=== PATIENT | male | born 1980 | race Caucasian/White ===

== ENCOUNTER → 2020-05-01 13:13 | Outpatient (CLI) | payer OTHER, SELFPAY ==
[2018-12-17 08:04] VITALS: BMI 36.2
--- NOTE | 2020-05-01 13:33 | RAD_ITS ---
STUDY: X-RAY - ABDOMEN/PELVIS REASON FOR EXAM: Male, 39 years old. 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 COMPARISON: None. FINDINGS: Normal visualized lung bases. There is an unremarkable bowel gas pattern. There is no demonstrated free abdominal air. The visualized liver, spleen and kidneys are grossly normal in size and morphology. Normal soft tissue structures. There are degenerative changes of the lumbosacral junction. RAD/Abdomen Single View IMPRESSION: There is no evidence of ileus or obstruction. There are degenerative changes of the lumbosacral junction. Electronically Signed: Jet Menon MD at 23:57 EDT , Service support ,
[2020-05-01 15:17] LABS: Absolute Lymphocyte Count 2.07 X10^3/uL (0.83-4.51); Absolute Neutrophil Count 4.6 X10^3/uL (2.0-7.7); Basophil# 0.03 X10^3/uL; Basophil% 0.4 % (0-1); Eosinophils% 1.3 % (0-5); Hematocrit 46.4 % (40-54); Hemoglobin 15.2 g/dL (13.0-16.5); Lymphocyte # 2.07 X10^3/ul (4.0); Lymphocyte % 26.5 % (19-41); Mean Corp Hgb Conc 32.8 g/dL (32-36); Mean Corpuscular Hgb 30.3 pg (27.0-32.0); Mean Corpuscular Volume 92.4 fL (80-94); Mean Platelet Vol. 10.5 fl (6.2-12.0); Monocyte# 0.96 X10^3/uL; Monocyte% 12.3 % (0-10); NRBC Flagged by Analyzer 0 % (0-5); Neutrophil # 4.63 X10^3/uL (2.7-7.7); Neutrophil % 59.1 % (47-70); Platelet Count 246 K/mm3 (150-450); RBC Distribution Width CV 12.9 % (11.6-14.6); RBC Distribution Width SD 43.5 fl (35.1-43.9); Red Blood Count 5.02 M/mm3 (4.6-6.2); White Blood Count 7.8 K/mm3 (4.4-11.0)
[2020-05-01 15:36] LABS: ALB/GLOB Ratio 1.1 RATIO (0.9-2.4); AST(SGOT) 18 U/L (15-37); Alanine Aminotransfer ALT/SGPT 28 U/L (16-61); Alkaline Phosphatase 68 U/L (45-117); Anion Gap 4 (5-15); BUN 14 mg/dL (7-18); BUN/Creat Ratio 12.5 RATIO (10-20); Calcium,Total 8.9 mg/dL (8.5-10.1); Chloride 105 mmol/L (98-107); Creatinine, Serum 1.12 mg/dL (0.70-1.30); EST Glomerular Filtration Rate 78 mL/min (>60); Est Glom Filt Rate - Afr Amer 94 mL/min (>60); Globulin 3.7 g/dL (2.2-4.2); Glucose 84 mg/dL (74-106); Potassium 4.1 mmol/L (3.5-5.1); Protein, Total 7.7 g/dL (6.4-8.2); Sodium Level 137 mmol/L (136-145)
== END ==
PROVIDERS: PCP Family Medicine; Visit Provider Family Medicine
DX: R10.12 Left upper quadrant pain (principal)
CPT/HCPCS: 36415; 74018; 80053; 85025

== ENCOUNTER → 2020-07-18 17:42 | Outpatient (CLI) | payer OTHER, SELFPAY ==
[2018-12-17 08:04] VITALS: BMI 36.2
== END ==
PROVIDERS: PCP Family Medicine; Referring Provider Family Medicine; Visit Provider Family Medicine
DX: Z11.59 Encounter for screening for other viral diseases (principal)
CPT/HCPCS: 87635; C9803; U0003

== ENCOUNTER 2021-11-05 14:34 | Outpatient (CLI) | payer OTHER, SELFPAY ==
--- NOTE | 2021-11-05 14:40 | RAD_ITS ---
STUDY: X-RAY - ABDOMEN/PELVIS REASON FOR EXAM: Male, 41 years old. HEMATURIA/BACK PAIN TECHNIQUE: Single AP view of the abdomen / pelvis. COMPARISON: None. FINDINGS: Normal visualized lung bases. There is a moderate amount of colonic fecal material. The visualized liver, spleen and kidneys are grossly normal in size and morphology. Normal soft tissue structures. Normal visualized osseous structures. RAD/Abdomen Single View IMPRESSION: Moderate amount of material is seen in the colon. Electronically Signed: Shade Machado MD at 14:55 EST , Service support ,
== END 2021-11-05 23:59 | disposition short-term general hospital (02) ==
PROVIDERS: PCP Family Medicine; Referring Provider Family Medicine; Visit Provider Family Medicine
DX: R31.29 Other microscopic hematuria (principal); M54.9 Dorsalgia, unspecified
CPT/HCPCS: 74018

== ENCOUNTER → 2023-12-05 | Outpatient (CLI) | payer OTHER, SELFPAY | END | disposition home or self-care (01) | LOC: BFHLAB 15:49 | PROVIDERS: PCP Family Medicine; Visit Provider Family Medicine | DX: Z00.00 Encounter for general adult medical examination without abnormal findings (principal) ==

== ENCOUNTER → 2023-12-08 | Outpatient (CLI) | payer OTHER, SELFPAY ==
[2023-12-08 10:32] LABS: Absolute Lymphocyte Count 1.42 X10^3/uL (0.83-4.51); Absolute Neutrophil Count 2.9 X10^3/uL (2.0-7.7); Basophil# 0.03 X10^3/uL; Basophil% 0.6 % (0-1); Eosinophil# 0.09 X10^3/uL; Eosinophils% 1.8 % (0-5); Hematocrit 44.2 % (40-54); Hemoglobin 14.5 g/dL (13.0-16.5); Lymphocyte # 1.42 X10^3/ul (0.83-4.51); Lymphocyte % 28.5 % (19-41); Mean Corp Hgb Conc 32.8 g/dL (32-36); Mean Corpuscular Volume 91.3 fL (80-94); Mean Platelet Vol. 10.2 fl (6.2-12.0); Monocyte# 0.56 X10^3/uL; Monocyte% 11.2 % (0-10); NRBC Flagged by Analyzer 0 % (0-5); Neutrophil # 2.88 X10^3/uL (2.7-7.7); Neutrophil % 57.7 % (47-70); Platelet Count 201 K/mm3 (150-450); RBC Distribution Width CV 12.4 % (11.6-14.6); RBC Distribution Width SD 41.1 fl (35.1-43.9); Red Blood Count 4.84 M/mm3 (4.6-6.2)
[2023-12-08 11:16] LABS: ALB/GLOB Ratio 1.1 RATIO (0.9-2.4); AST(SGOT) 16 U/L (15-37); Alanine Aminotransfer ALT/SGPT 24 U/L (16-61); Albumin, Serum 3.6 g/dL (3.2-5.0); Alkaline Phosphatase 51 U/L (45-117); Anion Gap 4 (5-15); BUN 11 mg/dL (7-18); Calcium,Total 8.8 mg/dL (8.5-10.1); Chloride 110 mmol/L (98-107); Cholesterol 168 mg/dL (200); EST Glomerular Filtration Rate 87 mL/min (>60); Est Glom Filt Rate - Afr Amer 105 mL/min (>60); Globulin 3.3 g/dL (2.2-4.2); Glucose 111 mg/dL (74-106); High Density Lipoprotein 51 mg/dL; Potassium 4.3 mmol/L (3.5-5.1); Protein, Total 6.9 g/dL (6.4-8.2); Sodium Level 140 mmol/L (136-145); Triglycerides 68 mg/dL; Very Low Density Lipoprotein 14 mg/dL (5-40)
[2023-12-08 11:37] LABS: Hemoglobin A1c 5.8 % (3.8-5.6)
== END | disposition home or self-care (01) ==
PROVIDERS: PCP Family Medicine; Referring Provider Family Medicine; Visit Provider Family Medicine
DX: Z00.00 Encounter for general adult medical examination without abnormal findings (principal)
CPT/HCPCS: 36415; 80053; 80061; 83036; 85025

== ENCOUNTER → 2025-02-24 | Outpatient (CLI) | payer OTHER, SELFPAY ==
[2025-02-24 17:48] LABS: Absolute Lymphocyte Count 2.27 X10^3/uL (0.83-4.51); Absolute Neutrophil Count 3.8 X10^3/uL (2.0-7.7); Basophil# 0.03 X10^3/uL; Basophil% 0.4 % (0-1); Eosinophil# 0.12 X10^3/uL; Eosinophils% 1.7 % (0-5); Hematocrit 42.3 % (40-54); Hemoglobin 13.9 g/dL (13.0-16.5); Lymphocyte # 2.27 X10^3/ul (0.83-4.51); Lymphocyte % 32.2 % (19-41); Mean Corp Hgb Conc 32.9 g/dL (32-36); Mean Corpuscular Hgb 29.7 pg (27.0-32.0); Mean Corpuscular Volume 90.4 fL (80-94); Mean Platelet Vol. 10.6 fl (6.2-12.0); Monocyte# 0.78 X10^3/uL; NRBC Flagged by Analyzer 0 % (0-5); Neutrophil # 3.84 X10^3/uL (2.7-7.7); Neutrophil % 54.4 % (47-70); Platelet Count 223 K/mm3 (150-450); RBC Distribution Width CV 12.6 % (11.6-14.6); Red Blood Count 4.68 M/mm3 (4.6-6.2); White Blood Count 7.1 K/mm3 (4.4-11.0)
[2025-02-24 18:01] LABS: Hemoglobin A1c 5.8 % (<=5.6)
[2025-02-24 18:03] LABS: ALB/GLOB Ratio 1.5 RATIO (0.9-2.4); AST(SGOT) 17 U/L (<=37); Alanine Aminotransfer ALT/SGPT 15 U/L (<=46); Albumin, Serum 4.2 g/dL (3.5-5.0); Alkaline Phosphatase 60 U/L (40-129); Anion Gap 9 (5-15); BUN 15 mg/dL (4-19); BUN/Creat Ratio 14.8 RATIO (10-20); Calcium,Total 9.2 mg/dL (7.6-11.0); Carbon Dioxide 25.4 mmol/L (21.0-32.0); Chloride 104 mmol/L (98-108); Cholesterol 180 mg/dL (<=200); Creatinine, Serum 0.98 mg/dL (0.70-1.20); EST Glomerular Filtration Rate 98 (>60); Globulin 2.8 g/dL (2.2-4.2); Glucose 93 mg/dL (70-99); High Density Lipoprotein 49 mg/dL; Low Density Lipoprotein Calc. 110 mg/dL; Potassium 4.5 mmol/L (3.3-5.1); Sodium Level 139 mmol/L (133-145); Total Bilirubin 0.29 mg/dL (0.00-1.30); Triglycerides 102 mg/dL; Very Low Density Lipoprotein 20 mg/dL (5-40); cholesterol:hdl ratio screen 3.65
== END | disposition home or self-care (01) ==
LOC: MTLAB 16:22
PROVIDERS: PCP Family Medicine; Referring Provider Family Medicine; Visit Provider Family Medicine
DX: Z00.00 Encounter for general adult medical examination without abnormal findings (principal); R53.83 Other fatigue; R73.01 Impaired fasting glucose
CPT/HCPCS: 36415; 80053; 80061; 83036; 84402; 84403; 85025

== ENCOUNTER → 2025-03-11 | Outpatient (CLI) | payer OTHER, SELFPAY ==
[2025-03-13 08:08] LABS: PROLACTIN 8.3 ng/mL (3.9-22.7); Transferrin 267 mg/dL (177-329)
== END | disposition home or self-care (01) ==
PROVIDERS: PCP Family Medicine; Referring Provider Family Medicine; Visit Provider Family Medicine
DX: E29.1 Testicular hypofunction (principal)
CPT/HCPCS: 36415; 84146; 84403; 84443; 84466

== ENCOUNTER 2025-05-11 23:45 | Observation (INO) | payer OTHER, SELFPAY ==
[2025-05-11 23:46] VITALS: BP 125/91; PULSE 90; RESP 18; TEMP 36.9; O2SAT 98; BMI 37.8
[2025-05-12] VITALS (9 sets, daily range): BP systolic 117–133; BP diastolic 69–83; PULSE 67–93; RESP 16–18; TEMP 36.4–37; O2SAT 94–98; BMI 38.0
--- NOTE | 2025-05-12 00:05 | EKG12_ITS ---
Test Reason : BACK Blood Pressure : */* mmHG Vent. Rate : 85 BPM Atrial Rate : 85 BPM P-R Int : 158 ms QRS Dur : 88 ms QT Int : 358 ms P-R-T Axes : 40 64 20 degrees QTcB Int : 426 ms Normal sinus rhythm Normal ECG Confirmed by MELISSA RAY, ANGELIKA ([id number]), website/blog editor ENA UMANZOR ([id number]) on 05/13/2025 1:17:50 PM Referred By: THOMAS Confirmed By: ANGELIKA TORRES MD
--- OUTSIDE RECORDS SUMMARY | 2025-05-12 00:11 | XMS RPT_ITS | CCD ---
Author Organization [facility] Care Team Providers Care Telephone Plant Power Operator Name Role Phone Dr. Kike Desir DO Primary Care Provider Dr. Kike Desir DO Attending Provider Dr. Kike Desir DO Referring Provider Kike Desir Primary Care Unavailable Kike Desir Referring Unavailable Kike Desir Attending Unavailable Kike Desir Referring Unavailable Kike Desir Attending Unavailable Kike Desir Primary Care Unavailable Medications Current Medications Medication Drug Class(es) Dates Sig (Normalized) Sig (Original) lisinopril 20 mg oral tablet (4 sources) Angiotensin Converting Enzyme Inhibitor Start: 12-17-2018 take 1 tablet by mouth once daily Lisinopril 20 mg tablet Active 20 mg PO DAILY December 17, 2018 1:00am Problems Problem Classification Problem Date Documented Da te Episodic/Chronic Other and unspecified benign neoplasm (4 sources) Lipoma (clinical); Translations: [Benign lipomatous neoplasm, unspecified] 12-17-2018 Episodic Other endocrine disorders (1 source) Testicular hypofunction; 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, [address] Transferrinon 03-13-2025 Transferrin [Mass/Vol] 267 mg/dL Normal 177-329 [facility] Comment on above: Result Comment: Perf ormed at: CB - [facility] [address] [id number] Amphibious Operations Officer: Tee Rodriguez PhD, Phone: [phone] Performed By: #### L 3100.5400, L3400.3800, L501.9520, L509.3001 #### [facility] [address] [place], [place], [id number] L509.3001on 03-11-2025 Testosterone [Mass/Vol] 165.00 ng/dL Low 300-890 [facility] Comment on above: Performed By: #### L 3100.5400, L3400.3800, L501.9520, L509.3001 #### [facility] [address] [place], [address] Laboratory - Chemistry and C hemistry - challengeOrdered By: Kike Desir on 03-11-2025 Testosterone [Mass/Vol] 165.00 ng/dL Low 300-890 [facility] Serum or plasma prolactin me asurement (mass/volume)Ordered By: Kike Desir on 03-11-2025 Prolactin [Mass/Vol] 8.3 ng/mL 3.9-22.7 [facility] TSH DL <= 0.005 mIU/L QnOrde red By: Kike Desir on 03-11-2025 TSH Qn 1.210 uIU/mL 0.300-4.200 [facility] Testosterone, Total / Freeon 03-11-2025 TESTOSTER,FREE 7.18 ng/dL Normal 5.00-21.00 [facility] Comment on above: Order Comment: N UNK Performed By: #### L 500.4100, L500.4050, L100.0100, L3100.5310, L501.9985 #### [facility] [address] [place], [address] TESTOSTER,TOTAL 204 ng/dL Low 264-916 [facility] Comment on above: Order Comment: N UNK Result Comment: Adul t male reference interval is based on a population of healthy nonobese males (BMI <30) between 19 and 39 years old. bud Brody.al. JCEM 2017,102;9395-4832. PMID: [id number]. Performed By: #### L 500.4100, L500.4050, L100.0100, L3100.5310, L501.9985 #### [facility] [address] [place], [place], [id number] TESTOSTERONE,%F 3.52 Normal 1.50-4.20 [facility] Comment on above: Order Comment: N UNK Result Comment: Perf ormed at: [facility] [address] [place], [place] [id number] Amphibious Operations Officer: Tee Rodriguez PhD, Phone: [phone] Performed at: [facility] [address] [id number] Amphibious Operations Officer: Jaime Moise MD, Phone: [phone] Performed By: #### L 500.4100, L500.4050, L100.0100, L3100.5310, L501.9985 #### [facility] [address] [place], [place], [address] Thyroid Stim Hormone (TSH)on 03-11-2025 TSH 1.210 uIU/mL Normal 0.300-4.200 [facility] Comment on above: Performed By: #### L 3100.5400, L3400.3800, L501.9520, L509.3001 #### [facility] [address] [place], [address] TransferrinOrdered By: Kike Desir on 03-11-2025 Transferrin [Mass/Vol] 267 mg/dL 177-329 [facility] Comment on above: Performed at: [facility] [place], [place] [id number] Director: Tee Rodriguez PhD, Phone: [phone] Absolute lymphocyte countOrd ered By: Kike Desir on 02-24-2025 Lymphocytes Auto (Unsp spec) [#/Vol] 2.27 10*3/uL 0.83-4.51 [facility] Absolute neutrophil countOrd ered By: Kike Desir on 02-24-2025 Neutrophils (Bld) [#/Vol] 3.8 10*3/uL 2.0-7.7 [facility] Anion gap in Serum or Plasma Ordered By: Kike Desir on 02-24-2025 Anion gap [Moles/Vol] 9 mmol/L 5- [facility] Automated lymphocyte count a s percentage of total leukocytesOrdered By: Kike Desir on 02-24-2025 Lymphocytes/100 WBC Auto (Unsp spec) 32.2 % - [facility] BUN/creatinine ratioOrdered By: Kike Desir on 02-24-2025 Urea nitrogen/Creatinine [Mass ratio] 14.8 mg/mg 10- [facility] Basophil percentageOrdered B y: Kike Desir on 02-24-2025 Basophils/100 WBC (Bld) 0.4 % 0-1 [facility] Bilirubin, totalOrdered By: Kike Desir on 02-24-2025 Bilirubin [Mass/Vol] 0.29 mg/dL 0.00-1.30 [facility] CBC W/Diff, Automatedon Absolute Lymph 2.27 X10 3/uL Normal 0.83-4.51 [facility] Comment on above: Performed By: #### L 500.4100, L500.4050, L100.0100, L3100.5310, L501.9985 #### [facility] [address] [place], [address] Absolute Neut 3.8 X10 3/uL Normal 2.0-7.7 [facility] Comment on above: Performed By: #### L 500.4100, L500.4050, L100.0100, L3100.5310, L501.9985 #### [facility] [address] [place], [address] Basophils/100 WBC (Bld) 0.4 % Normal 0-1 [facility] Comment on above: Performed By: #### L 500.4100, L500.4050, L100.0100, L3100.5310, L501.9985 #### [facility] [address] [place], [address] Eosinophils/100 WBC (Bld) 1.7 % Normal 0-5 [facility] Comment on above: Performed By: #### L 500.4100, L500.4050, L100.0100, L3100.5310, L501.9985 #### [facility] [address] [place], [address] Erythrocyte distribution width (RBC) [Ratio] 12.6 % Normal 11.6-14.6 [facility] Comment on above: Performed By: #### L 500.4100, L500.4050, L100.0100, L3100.5310, L501.9985 #### [facility] [address] [place], [address] Hematocrit (Bld) [Volume fraction] 42.3 % Normal 40-54 [facility] Comment on above: Performed By: #### L 500.4100, L500.4050, L100.0100, L3100.5310, L501.9985 #### [facility] [address] [place], [address] Hemoglobin (Bld) [Mass/Vol] 13.9 g/dL Normal 13.0-16.5 [facility] Comment on above: Performed By: #### L 500.4100, L500.4050, L100.0100, L3100.5310, L501.9985 #### [facility] [address] [place], [address] IG% 0.300 Normal 0.0-0.9 [facility] Comment on above: Result Comment: IG% - Immature Granulocytes (promyelocytes, myelocytes and metamyelocytes) > 1% indicates that a LEFT SHIFT is Present. Performed By: #### L 500.4100, L500.4050, L100.0100, L3100.5310, L501.9985 #### [facility] [address] [place], [address] Lymphocytes/100 WBC (Bld) 32.2 % Normal 19-41 [facility] Comment on above: Performed By: #### L 500.4100, L500.4050, L100.0100, L3100.5310, L501.9985 #### [facility] [address] [place], [address] MCH (RBC) [Entitic mass] 29.7 pg Normal 27.0-32.0 [facility] Comment on above: Performed By: #### L 500.4100, L500.4050, L100.0100, L3100.5310, L501.9985 #### [facility] [address] [place], [address] MCHC (RBC) [Mass/Vol] 32.9 g/dL Normal 32-[address] [facility] Comment on above: Performed By: #### L 500.4100, L500.4050, L100.0100, L3100.5310, L501.9985 #### [facility] [address] [place], [address] MCV (RBC) [Entitic vol] 90.4 fL Normal 80-94 [facility] Comment on above: Performed By: #### L 500.4100, L500.4050, L100.0100, L3100.5310, L501.9985 #### [facility] [address] [place], [address] Monocytes/100 WBC (Bld) 11.0 % High 0-10 [facility] Comment on above: Performed By: #### L 500.4100, L500.4050, L100.0100, L3100.5310, L501.9985 #### [facility] [address] [place], [address] Neutrophils/100 WBC (Bld) 54.4 % Normal 47-70 [facility] Comment on above: Performed By: #### L 500.4100, L500.4050, L100.0100, L3100.5310, L501.9985 #### [facility] [address] [place], [address] Nucleated RBC (Bld) [#/Vol] 0 10*3/uL Normal 0-5 [facility] Comment on above: Performed By: #### L 500.4100, L500.4050, L100.0100, L3100.5310, L501.9985 #### [facility] [address] [place], [address] Platelet mean volume (Bld) [Entitic vol] 10.6 fL Normal 6.2-12.0 [facility] Comment on above: Performed By: #### L 500.4100, L500.4050, L100.0100, L3100.5310, L501.9985 #### [facility] [address] [place], [address] Platelets (Bld) [#/Vol] 223 10*3/uL Normal 150-450 [facility] Comment on above: Performed By: #### L 500.4100, L500.4050, L100.0100, L3100.5310, L501.9985 #### [facility] [address] [place], [address] RBC (Bld) [#/Vol] 4.68 10*6/uL Normal 4.6-6.2 [facility] Comment on above: Performed By: #### L 500.4100, L500.4050, L100.0100, L3100.5310, L501.9985 #### [facility] [address] [place], [address] RDW SD 41.0 fl Normal 35.1-43.9 [facility] Comment on above: Performed By: #### L 500.4100, L500.4050, L100.0100, L3100.5310, L501.9985 #### [facility] [address] [place], [address] WBC (Bld) [#/Vol] 7.1 10*3/uL Normal 4.4-11.0 [facility] Comment on above: Performed By: #### L 500.4100, L500.4050, L100.0100, L3100.5310, L501.9985 #### [facility] [address] [place], [address] Calculated very low density lipoprotein (VLDL) cholesterol measurementOrdered By: Kike Desir on 02-24-2025 Calculated very low density lipoprotein (VLDL) cholesterol measurement 20 mg/dL 5-40 [facility] Carbon dioxide, total [Moles /volume] in Central venous bloodOrdered By: Kike Desir on 02-24-2025 CO2 [Moles/Vol] 25.4 mmol/L 21.0-32.0 [facility] Chloride assayOrdered By: Dawood Desir on 02-24-2025 Chloride [Moles/Vol] 104 mmol/L 98-108 [facility] Comprehensive Metabolic Prof ilon 02-24-2025 Albumin [Mass/Vol] 4.2 g/dL Normal 3.5-5.0 [facility] Comment on above: Order Comment: UNK Performed By: #### L 500.4100, L500.4050, L100.0100, L3100.5310, L501.9985 #### [facility] [address] [place], [address] Albumin/Globulin [Mass ratio] 1.5 {ratio} Normal 0.9-2.4 [facility] Comment on above: Order Comment: UNK Performed By: #### L 500.4100, L500.4050, L100.0100, L3100.5310, L501.9985 #### [facility] [address] [place], [address] ALK PHOS 60 U/L Normal 40-129 [facility] Comment on above: Order Comment: UNK Performed By: #### L 500.4100, L500.4050, L100.0100, L3100.5310, L501.9985 #### [facility] [address] [place], [address] ALT [Catalytic activity/Vol] 15 U/L Normal <=46 [facility] Comment on above: Order Comment: UNK Performed By: #### L 500.4100, L500.4050, L100.0100, L3100.5310, L501.9985 #### [facility] [address] [place], [address] AST [Catalytic activity/Vol] 17 U/L Normal <=37 [facility] Comment on above: Order Comment: UNK Performed By: #### L 500.4100, L500.4050, L100.0100, L3100.5310, L501.9985 #### [facility] [address] [place], [address] Bilirubin [Mass/Vol] 0.29 mg/dL Normal 0.00-1.30 [facility] Comment on above: Order Comment: UNK Performed By: #### L 500.4100, L500.4050, L100.0100, L3100.5310, L501.9985 #### [facility] [address] [place], [address] BUN/CRE 14.8 RATIO Normal 10-20 [facility] Comment on above: Order Comment: UNK Performed By: #### L 500.4100, L500.4050, L100.0100, L3100.5310, L501.9985 #### [facility] [address] [place], [address] Calcium [Mass/Vol] 9.2 mg/dL Normal 7.6-11.0 [facility] Comment on above: Order Comment: UNK Performed By: #### L 500.4100, L500.4050, L100.0100, L3100.5310, L501.9985 #### [facility] [address] [place], [address] Chloride [Moles/Vol] 104 mmol/L Normal 98-108 [facility] Comment on above: Order Comment: UNK Performed By: #### L 500.4100, L500.4050, L100.0100, L3100.5310, L501.9985 #### [facility] [address] [place], [address] CO2 [Moles/Vol] 25.4 mmol/L Normal 21.0-32.0 [facility] Comment on above: Order Comment: UNK Performed By: #### L 500.4100, L500.4050, L100.0100, L3100.5310, L501.9985 #### [facility] [address] [place], [address] Creatinine [Mass/Vol] 0.98 mg/dL Normal 0.70-1.[address] [facility] Comment on above: Order Comment: UNK Performed By: #### L 500.4100, L500.4050, L100.0100, L3100.5310, L501.9985 #### [facility] [address] [place], [address] GAP 9 Normal 5-15 [facility] Comment on above: Order Comment: UNK Performed By: #### L 500.4100, L500.4050, L100.0100, L3100.5310, L501.9985 #### [facility] [address] [place], [address] GFR/1.73 sq M.predicted among non-blacks MDRD (S/P/Bld) [Vol rate/Area] 98 mL/min/{1.73_m2} Normal >60 [facility] Comment on above: Order Comment: UNK Result Comment: mL/m in/1.73m2 CKD-EPI Creatinine Equation (2020) Performed By: #### L 500.4100, L500.4050, L100.0100, L3100.5310, L501.9985 #### [facility] [address] [place], [address] Globulin (S) [Mass/Vol] 2.8 g/dL Normal 2.2-4.2 [facility] Comment on above: Order Comment: UNK Performed By: #### L 500.4100, L500.4050, L100.0100, L3100.5310, L501.9985 #### [facility] [address] [place], [address] Glucose [Mass/Vol] 93 mg/dL Normal 70-99 [facility] Comment on above: Order Comment: UNK Performed By: #### L 500.4100, L500.4050, L100.0100, L3100.5310, L501.9985 #### [facility] [address] [place], [address] Potassium [Moles/Vol] 4.5 mmol/L Normal 3.3-5.[address] [facility] Comment on above: Order Comment: UNK Performed By: #### L 500.4100, L500.4050, L100.0100, L3100.5310, L501.9985 #### [facility] [address] [place], [address] Sodium [Moles/Vol] 139 mmol/L Normal 133-145 [facility] Comment on above: Order Comment: UNK Performed By: #### L 500.4100, L500.4050, L100.0100, L3100.5310, L501.9985 #### [facility] [address] [place], [place], [address] T PROT 7.0 g/dL Normal 5.9-8.4 [facility] Comment on above: Order Comment: UNK Performed By: #### L 500.4100, L500.4050, L100.0100, L3100.5310, L501.9985 #### [facility] [address] [place], [address] Urea nitrogen [Mass/Vol] 15 mg/dL Normal 4-19 [facility] Comment on above: Order Comment: UNK Performed By: #### L 500.4100, L500.4050, L100.0100, L3100.5310, L501.9985 #### [facility] [address] [place], [place], [address] Eosinophil percentageOrdered By: Kike Desir on 02-24-2025 Eosinophils/100 WBC (Bld) 1.7 % 0-5 [facility] Erythrocyte distribution wid th ratioOrdered By: Kike Deisr on 02-24-2025 Erythrocyte distribution width (RBC) [Ratio] 12.6 % 11.6-14.6 [facility] Erythrocyte distribution wid th standard deviationOrdered By: Kike Desir on 02-24-2025 Erythrocyte distribution width (RBC) [Ratio] 41.0 fl 35.1-43.9 [facility] Free testosterone percentage Ordered By: Kike Desir on 02-24-2025 Testosterone Free/Testosterone.total [Mass fraction] 3.52 % 1.50-4.20 [facility] Comment on above: Performed at: [address] [id number] Director: Tee Rodriguez PhD, Phone: [phone] at: [facility] Lab[address] [id number] Director: Jaime Moise MD, Phone: [phone] Glomerular filtration rate ( GFR) estimation/1.73 sq m using serum, plasma, or whole bOrdered By: Kike Desir on 02-24-2025 GFR/1.73 sq M.predicted among non-blacks MDRD (S/P/Bld) [Vol rate/Area] 98 mL/min/{1.73_m2} >60 [facility] Comment on above: mL/min/1.73m2 CKD-EP I Creatinine Equation (2020) Hematocrit Auto (Bld) [Volum e fraction]Ordered By: Kike Desir on 02-24-2025 Hematocrit (Bld) [Volume fraction] 42.3 % 40-54 [facility] Hemoglobin A1con 02-24-2025 HbA1c (Bld) [Mass fraction] 5.8 % High <=5.6 [facility] Comment on above: Result Comment: Norm al < 5.7 % Prediabetic 5.7 - 6.4 % Diabetic >or= 6.5 % Please note range changes. Performed By: #### L 500.4100, L500.4050, L100.0100, L3100.5310, L501.9985 #### [facility] [address] [place], [place], [id number] Hemoglobin A1c percentageOrd ered By: Kike Desir on 02-24-2025 HbA1c (Bld) [Mass fraction] 5.8 % High <5.7 [facility] Comment on above: Normal < 5.7 % Predi abetic 5.7 - 6.4 % Diabetic >or= 6.5 % Please note range changes. Hemoglobin measurementOrdere d By: Kike Desir on 02-24-2025 Hemoglobin (Bld) [Mass/Vol] 13.9 g/dL 13.0-16.5 [facility] Immature granulocytes/100 WB C Auto (Bld)Ordered By: Kike Desir on 02-24-2025 Immature granulocytes/100 WBC (Bld) 0.300 % 0.0-0.9 [facility] Comment on above: IG% - Immature Granu locytes (promyelocytes, myelocytes and metamyelocytes) > 1% indicates that a LEFT SHIFT is Present. LDL calc ser/plasOrdered By: Kike Desir on 02-24-2025 Cholesterol in LDL [Mass/Vol] 110 mg/dL [facility] Comment on above: Yqudwymicc=848-525 m g/dL & Higher Hxfg=643 mg/dL or greater Laboratory - Chemistry and C hemistry - challengeOrdered By: Kike Desir on 02-24-2025 AST [Catalytic activity/Vol] 17 U/L <38 [facility] Lipid Profileon 02-24-2025 CHOL:HDL 3.65 Normal [facility] Comment on above: Performed By: #### L 500.4100, L500.4050, L100.0100, L3100.5310, L501.9985 #### [facility] [address] [place], [address] Cholesterol [Mass/Vol] 180 mg/dL Normal <=200 [facility] Comment on above: Result Comment: Chol esterol level, Desirable <200 mg/dL Borderline high cholesterol 200-239 mg/dL High cholesterol >=240 mg/dL Recommendations of the NCEP Adult Treatment Panel for the following risk-cutoff thresholds for the [place] population. Performed By: #### L 500.4100, L500.4050, L100.0100, L3100.5310, L501.9985 #### [facility] [address] [place], [address] Cholesterol in HDL [Mass/Vol] 49 mg/dL Normal [facility] Comment on above: Result Comment: Pearl onal Cholesterol Education Program (NCEP) guidelines: <40 mg/dL: Low HDL-cholesterol (major risk factor for CHD) >= 60 mg/dL: High HDL-cholesterol (negative risk factor for CHD) HDL-cholesterol is affected by a number of factors, e.g. smoking, exercise, hormones, sex and age. Performed By: #### L 500.4100, L500.4050, L100.0100, L3100.5310, L501.9985 #### [facility] [address] [place], [address] Cholesterol in LDL [Mass/Vol] 110 mg/dL Normal [facility] Comment on above: Result Comment: Bord renccm=745-183 mg/dL Higher Kogj=805 mg/dL or greater Performed By: #### L 500.4100, L500.4050, L100.0100, L3100.5310, L501.9985 #### [facility] [address] [place], [address] Cholesterol in VLDL [Mass/Vol] 20 mg/dL Normal 5-40 [facility] Comment on above: Performed By: #### L 500.4100, L500.4050, L100.0100, L3100.5310, L501.9985 #### [facility] [address] [place], [address] Triglyceride [Mass/Vol] 102 mg/dL Normal [facility] Comment on above: Result Comment: The drugs N-Acetylcysteine and Metamizole may falsely depress this assay. Normal range: <150 mg/dL Borderline High: 150-199 mg/dL High: 200-499 mg/dL Very High: >500 mg/dL Performed By: #### L 500.4100, L500.4050, L100.0100, L3100.5310, L501.9985 #### [facility] [address] [place], [address] MCV (mean corpuscular volume ) determinationOrdered By: Kike Desir on 02-24-2025 MCV (RBC) [Entitic vol] 90.4 fL 80-94 [facility] Mean corpuscular hemoglobin (MCH) determinationOrdered By: Kike Desir on 02-24-2025 MCH (RBC) [Entitic mass] 29.7 pg 27.0-32.0 [facility] Mean corpuscular hemoglobin concentration (MCHC) determinationOrdered By: Kike Desir on 02-24-2025 MCHC (RBC) [Mass/Vol] 32.9 g/dL 32-[address] [facility] Mean platelet volume determi nationOrdered By: Kike Desir on 02-24-2025 Platelet mean volume (Bld) [Entitic vol] 10.6 fL 6.2-12.0 [facility] Monocyte percentageOrdered B y: Kike Desir on 02-24-2025 Monocytes/100 WBC (Bld) 11.0 % High 0-10 [facility] Neutrophil percentageOrdered By: Kike Desir on 02-24-2025 Neutrophils/100 WBC (Bld) 54.4 % 47-70 [facility] Nucleated red blood cell per centageOrdered By: Kike Desir on 02-24-2025 Nucleated RBC/100 WBC (Bld) [Ratio] 0 % 0-5 [facility] Platelet countOrdered By: Dawood Desir on 02-24-2025 Platelets (Bld) [#/Vol] 223 10*3/uL 150-450 [facility] Potassium measurement (mass/ volume)Ordered By: Kike Desir on 02-24-2025 Potassium (Unsp spec) [Mass/Vol] 4.5 mmol/L 3.3-5.1 [facility] RBC Auto (Bld) [#/Vol]Ordere d By: Kike Desir on 02-24-2025 RBC (Bld) [#/Vol] 4.68 10*6/uL 4.6-6.2 [facility] Screening total cholesterol/ high density lipoprotein (HDL) cholesterol ratioOrdered By: Kike Desir on 02-24-2025 Cholesterol.total/Cholest brooke in HDL [Mass ratio] 3.65 {ratio} [facility] Serum creatinine measurement (mass/volume)Ordered By: Kike Desir on 02-24-2025 Creatinine [Mass/Vol] 0.98 mg/dL 0.70-1.[address] [facility] Serum globulin measurementOr dered By: Kike Desir on 02-24-2025 Globulin (S) [Mass/Vol] 2.8 g/dL 2.2-4.2 [facility] Serum glucose measurement (m ass/volume)Ordered By: Kike Desir on 02-24-2025 Glucose [Mass/Vol] 93 mg/dL 70-99 [facility] Serum or plasma alanine adhikari otransferase (ALT) measurementOrdered By: Kike Desir on 02-24-2025 ALT [Catalytic activity/Vol] 15 U/L <47 [facility] Serum or plasma albumin tita urement (mass/volume)Ordered By: Kike Desir on 02-24-2025 Albumin [Mass/Vol] 4.2 g/dL 3.5-5.0 [facility] Serum or plasma albumin/glob ulin mass ratioOrdered By: Kike Desir on 02-24-2025 Albumin/Globulin [Mass ratio] 1.5 {ratio} 0.9-2.4 [facility] Serum or plasma alkaline lyudmila sphatase measurementOrdered By: Kike Desir on 02-24-2025 ALP [Catalytic activity/Vol] 60 U/L 40-129 [facility] Serum or plasma calcium tita urement (mass/volume)Ordered By: Kike Desir on 02-24-2025 Calcium [Mass/Vol] 9.2 mg/dL 7.6-11.0 [facility] Serum or plasma cholesterol in HDL measurement (mass/volume)Ordered By: Kike Desir on 02-24-2025 Cholesterol in HDL [Mass/Vol] 49 mg/dL >40 [facility] Comment on above: National Cholesterol Education Program (NCEP) guidelines:<40 mg/dL: Low HDL-cholesterol (major risk factor for CHD)>= 60 mg/dL: High HDL-cholesterol (negative risk factor for CHD)HDL-cholesterol is affected by a number of factors, e.g. smoking, exercise, hormones, sex and age. Serum or plasma cholesterol measurement (mass/volume)Ordered By: Kike Desir on 02-24-2025 Cholesterol [Mass/Vol] 180 mg/dL <201 [facility] Comment on above: Cholesterol level, D esirable <200 mg/dLBorderline high cholesterol 200-239 mg/dLHigh cholesterol >=240 mg/dLRecommendations of the NCEP Adult Treatment Panel for the following risk-cutoff thresholds for the [place] population. Serum or plasma free testost erone measurement (mass/volume)Ordered By: Kike Desir on 02-24-2025 Testosterone Free [Mass/Vol] 7.18 ng/dL 5.00-21.00 [facility] Serum or plasma urea nitroge n measurement (mass/volume)Ordered By: Kike Desir on 02-24-2025 Urea nitrogen [Mass/Vol] 15 mg/dL 4-19 [facility] Sodium levelOrdered By: Kike Desir on 02-24-2025 Sodium [Moles/Vol] 139 mmol/L 133-145 [facility] Testosterone, totalOrdered B y: Kike Thang on 02-24-2025 Testosterone [Mass/Vol] 204 ng/dL Low 264-916 [facility] Comment on above: Adult male reference interval is based on a population ofhealthy nonobese males (BMI <30) between 19 and 39 yearsold. bud Brody.al. JCEM 2017,102;[id number]. PMID:[id number]. Total proteinOrdered By: Saige Desir on 02-24-2025 Protein [Mass/Vol] 7.0 g/dL 5.9-8.4 [facility] Triglycerides measurementOrd ered By: Kike Desir on 02-24-2025 Triglyceride [Mass/Vol] 102 mg/dL <199 [facility] Comment on above: The drugs N-Acetylcy steine and Metamizole may falsely depress this assay. Normal range: <150 mg/dLBorderline High: 150-199 mg/dLHigh: 200-499 mg/dLVery High: >500 mg/dL White blood cell (WBC) count Ordered By: Kike Desir on 02-24-2025 WBC (Bld) [#/Vol] 7.1 10*3/uL 4.4-11.0 [facility] Absolute lymphocyte countOrd ered By: Kike Desir on 12-08-2023 Lymphocytes Auto (Unsp spec) [#/Vol] 1.42 10*3/uL 0.83-4.51 [facility] Automated lymphocyte count a s percentage of total leukocytesOrdered By: Kike Desir on 12-08-2023 Lymphocytes/100 WBC Auto (Unsp spec) 28.5 % 19-41 [facility] Basophil percentageOrdered B y: Kike Desir on 12-08-2023 Basophils/100 WBC (Bld) 0.6 % 0-1 [facility] Bilirubin [Mass/Vol] 0.40 mg/dL 0.20-1.00 [facility] Comment on above: For patients on eltr ombopag therapy, use of Dimension [place] TBIL is not recommended. Chloride [Moles/Vol] 110 mmol/L 98-107 [facility] Cholesterol [Mass/Vol] 168 mg/dL <200 [facility] Comment on above: <200 mg/dL Desirable 200-240 mg/dL Borderline >240 mg/dL High Risk Eosinophils/100 WBC (Bld) 1.8 % 0-5 [facility] Glucose [Mass/Vol] 111 mg/dL 74-106 [facility] Comment on above: Fasting Glucose resu lt from 100 to 125 mg/dL suggests IMPAIRED HOMEOSTASIS per A.D.A. criteria. Hemoglobin (Bld) [Mass/Vol] 14.5 g/dL 13.0-16.5 [facility] Monocytes/100 WBC (Bld) 11.2 % 0-10 [facility] Neutrophils (Bld) [#/Vol] 2.9 10*3/uL 2.0-7.7 [facility] Neutrophils/100 WBC (Bld) 57.7 % 47-70 [facility] Potassium [Moles/Vol] 4.3 mmol/L 3.5-5.[address] [facility] Protein [Mass/Vol] 6.9 g/dL 6.4-8.2 [facility] Sodium [Moles/Vol] 140 mmol/L 136-145 [facility] Triglyceride [Mass/Vol] 68 mg/dL <199 [facility] Comment on above: The drugs N-Acetylcy steine and Metamizole may falsely depress this assay.Serum Triglycerides Reference Interval Normal <150 mg/dL Borderline high 150 - 199 mg/dL High 200 - 499 mg/dL Very High > or = 500 mg/dL WBC (Bld) [#/Vol] 5.0 10*3/uL 4.4-11.0 [facility] Determination of erythrocyte mean corpuscular volume (MCV)Ordered By: Kike Desir on 12-08-2023 MCV (RBC) [Entitic vol] 91.3 fL 80-94 [facility] Erythrocyte distribution wid th ratioOrdered By: Kike Desir on 12-08-2023 Erythrocyte distribution width (RBC) [Ratio] 12.4 % 11.6-14.6 [facility] Erythrocyte distribution wid th standard deviationOrdered By: Kike Desir on 12-08-2023 Erythrocyte distribution width (RBC) [Entitic vol] 41.1 fL 35.1-43.9 [facility] Hematocrit Auto (Bld) [Volum e fraction]Ordered By: Kike Desir on 12-08-2023 Hematocrit (Bld) [Volume fraction] 44.2 % 40-54 [facility] Immature granulocytes/100 WB C Auto (Bld)Ordered By: Kike Desir on 12-08-2023 Immature granulocytes/100 WBC (Bld) 0.200 % 0.0-0.9 [facility] Comment on above: IG% - Immature Granu locytes (promyelocytes, myelocytes and metamyelocytes) > 1% indicates that a LEFT SHIFT is Present. Laboratory - Chemistry and C hemistry - challengeOrdered By: Kike Desir on 12-08-2023 Albumin/Globulin [Mass ratio] 1.1 {ratio} 0.9-2.4 [facility] ALP [Catalytic activity/Vol] 51 U/L 45-117 [facility] ALT [Catalytic activity/Vol] 24 U/L 16-61 [facility] Cholesterol in HDL [Mass/Vol] 51 mg/dL >40 [facility] Comment on above: The drugs N-Acetylcy steine and Metamizole may falsely depress this assay. Reference Range HDL <40 mg/dL Low HDL Cholesterol HDL >or= 60 mg/dL High HDL Cholesterol Cholesterol in LDL [Mass/Vol] 103 mg/dL 0-130 [facility] CO2 [Moles/Vol] 26.0 mmol/L 21.0-32.0 [facility] Globulin (S) [Mass/Vol] 3.3 g/dL 2.2-4.2 [facility] Urea nitrogen/Creatinine [Mass ratio] 11.0 mg/mg 10-20 [facility] Laboratory - Hematology and Cell countsOrdered By: Kike Desir on 12-08-2023 MCH (RBC) [Entitic mass] 30.0 pg 27.0-32.0 [facility] MCHC (RBC) [Mass/Vol] 32.8 g/dL 32-[address] [facility] Nucleated RBC/100 WBC (Bld) [Ratio] 0 % 0-5 [facility] Platelet mean volume (Bld) [Entitic vol] 10.2 fL 6.2-12.0 [facility] Platelets (Bld) [#/Vol] 201 10*3/uL 150-450 [facility] No Panel InformationOrdered By: Kike Desir on 12-08-2023 Estimated GFR (MDRD) Amer 105 mL/min >60 [facility] Comment on above: GFR Calc Estimated GFR (MDRD) Non-Af Amer 87 mL/min >60 [facility] Comment on above: Non- GFR Calc VLDL Cholesterol 14 mg/dL 5-40 [facility] RBC Auto (Bld) [#/Vol]Ordere d By: Kike Desir on 12-08-2023 RBC (Bld) [#/Vol] 4.84 10*6/uL 4.6-6.2 [facility] Serum or plasma calcium tita urement (mass/volume)Ordered By: Kike Desir on 12-08-2023 Calcium [Mass/Vol] 8.8 mg/dL 8.5-10.1 [facility] Serum or plasma creatinine m easurement (mass/volume)Ordered By: Kike Desir on 12-08-2023 Creatinine [Mass/Vol] 1.00 mg/dL 0.70-1.[address] [facility] Comment on above: The validity of the calculated GFR & GFRAA in patients over 70 years has not been determined. Clinical correlation is essential. Serum or plasma urea nitroge n measurement (mass/volume)Ordered By: Kike Desir on 12-08-2023 Urea nitrogen [Mass/Vol] 11 mg/dL 7-18 [facility] Thin prep Papanicolaou smear with manual screeningOrdered By: Kike Desir on 12-08-2023 Thin prep Papanicolaou smear with manual screening 3.6 g/dL 3.2-5.0 [facility] Thin prep Papanicolaou smear with manual screening 16 U/L 15-37 [facility] Thin prep Papanicolaou smear with manual screening 4 5-15 [facility] Whole blood hemoglobin A1c/t otal hemoglobin ratio (mass fraction)Ordered By: Kike Desir on 12-08-2023 HbA1c (Bld) [Mass fraction] 5.8 % 3.8-5.6 [facility] Comment on above: Normal < 5.7 % Predi abetic 5.7 - 6.4 % Diabetic >or= 6.5 % Please note range changes. Encounters Encounter Date Encounter Type Care Provider Facility Start: 03-11-2025 End: 03-11-[address] Kike Desir DO Work Phone: [facility] Work Phone: Start: 03-11-2025 End: 03-11-[address] Kike Desir DO -Laboratory [place] Work Phone: Start: 03-11-2025 End: 03-11-2025 ambulatory Kike Thang Facility:[facility] Start: 03-01-2025 Encounter for genera l adult medical examination without abnormal findings [facility] Start: 02-24-2025 End: 02-24-[address] Kike Desir DO Work Phone: [facility] Work Phone: Start: 02-24-2025 End: 02-24-[address] Kike Desir DO -Laboratory, [place] Work Phone: Start: 02-24-2025 End: 02-24-2025 ambulatory Kike Thang Facility:[facility] Start: 12-08-2023 End: 12-08-2023 ambulatory [facility] Work Phone: Start: 12-08-2023 End: 12-08-2023 Patient encounter procedure [facility]-Laboratory Work Phone: Start: 12-05-2023 End: 12-05-2023 ambulatory [facility] Work Phone: Start: 12-05-2023 End: 12-05-2023 Patient encounter procedure [facility] Plan of Treatment Date Care Activity Detail Author Serum testosterone measurement [facility] Testosterone Free [M ass/volume] in Serum or Plasma [facility] Testosterone measurement [facility] Payers Date Payer Category Payer Private Health Insurance [id number] 2025 Self-pay [id number] 2011 Unknown [id number] Unknown [id number] Unknown [id number] Social History Date Type Detail Facility Start: 12-17-2018 Tobacco smoking stat [facility] Unknown if ever smoked [facility] Start: 1980 Sex Assigned At Male [facility] Start: 12-17-2018 Tobacco smoking stat [facility] Never smoked tobacco (finding) [facility] Evaluation note Note Date & Type Note Facility Evaluation note No assessment information availa ble [facility] Work Phone: Reason for referral (narrative) Note Date & Type Note Facility Reason for referral (narrative) No reason for referral information available [facility] Work Phone: Summary Purpose Family History No Family History Records Found Advance Directives No Advanced Directives Records Found Additional Source Comments Care Teams (unrecognized sec tion and content) Team Status: Active Member Role Status Dates Tashi Jacobs MD Family Provider Active Dr. Kike Desir DO Primary Care Provider Active Team Status: Inactive Member Role Status Dates Dr. Kike Desir DO Primary Care Provider, Attendin g Provider Active Team Status: Active Member Role Status Dates Dr. Kike Desir DO Primary Care Prov ider, Attending Provider, Referring Provider Active Team Status: Inactive Member Role Status Dates Dr. Kike Desir DO Primary Care Prov ider, Attending Provider, Referring Provider Active Team Status: Inactive Member Role Status Dates Dr. Kike Desir DO Primary Care Provider Active Start: February 24, 2025 End: February 24, 2025 Dr. Kike Desir DO Attending Provider Active Start: February 24, 2025 End: February 24, 2025 Dr. Kike Desir DO Referring Provider Active Start: February 24, 2025 End: February 24, 2025 Team Status: Active Member Role Status Dates Dr. Kike Desir DO Primary Care Provider Active Team Status: Inactive Member Role Status Dates Dr. Kike Desir DO Primary Care Provider Active Start: March 11, 2025 End: March 11, 2025 Dr. Kike Desir DO Attending Provider Active Start: March 11, 2025 End: March 11, 2025 Dr. Kike Desir DO Referring Provider Active Start: March 11, 2025 End: March 11, 2025 Goals (unrecognized section and content) Goals may be documented in a n alternate sectionGoals may be documented in an alternate sectionGoals may be documented in an alternate sectionGoals may be documented in an alternate section (unrecognized sect ion and content) No Status Records Found INFORMATION SOURCE (unrecogn ized section and content) DATE CREATED AUTHOR 03/17/2025 [facility] FOR RECORDS PERTAINING TO PATIENTS WHO ARE OR HAVE BEEN ENROLLED IN A CHEMICAL DEPENDENCY/SUBSTANCEABUSE PROGRAM, SOME INFORMATION MAY BE OMITTED. This clinical summary was aggregated from multiple sources. Caution should be exercised in using it in the provision of clinical care. This summary normalizes information from multiple sources, and as a consequence, information in this document may materially change the coding, format and clinical context of patient data. In addition, data may be omitted in some cases. CLINICAL DECISIONS SHOULD BE BASED ON THE PRIMARY CLINICAL RECORDS. [employer] provides no warranty or guarantee of the accuracy or completeness of information in this document.
[2025-05-12] MEDS: Ketorolac 30 MG/ML Syringe IV (00:28)
[2025-05-12] MEDS: 0.9% Normal Saline (1000mL) 1,000 ML 999 ML IV (00:29)
[2025-05-12 00:42] LABS: Hematocrit 41.8 % (40-54); Hemoglobin 13.8 g/dL (13.0-16.5); Immature Granulocytes Count 0.040 X10^3/uL (0.0-0.0); Mean Corp Hgb Conc 33.0 g/dL (32-36); Mean Corpuscular Volume 89.7 fL (80-94); Mean Platelet Vol. 9.8 fl (6.2-12.0); NRBC Flagged by Analyzer 0 % (0-5); Platelet Count 232 K/mm3 (150-450); RBC Distribution Width CV 12.7 % (11.6-14.6); RBC Distribution Width SD 41.5 fl (35.1-43.9); Red Blood Count 4.66 M/mm3 (4.6-6.2); White Blood Count 8.0 K/mm3 (4.4-11.0)
--- NOTE | 2025-05-12 00:42 | RAD_ITS ---
PROCEDURE: CHEST PA AND LATERAL 05/12/2025 REASON FOR EXAM: PAIN TECHNIQUE: CHEST PA AND LATERAL COMPARISON: No FINDINGS: Normal heart size. Well inflated lungs. No consolidation, effusion, or pneumothorax. RAD/Chest PA and Lateral IMPRESSION: No acute chest findings. Reading Location: [place] [address]
[2025-05-12 00:54] LABS: D-Dimer Quantitative (DVT/PE) 2.31 FEU/ug/m (0.27-0.49)
[2025-05-12 01:00] LABS: Anion Gap 13 (5-15); BUN 15 mg/dL (4-19); BUN/Creat Ratio 15.3 RATIO (10-20); Calcium,Total 9.1 mg/dL (7.6-11.0); Carbon Dioxide 21.4 mmol/L (21.0-32.0); Chloride 101 mmol/L (98-108); Estimated Creatinine Clearance 146.80 ml/min (50-250); Glucose 119 mg/dL (70-99); Potassium 4.2 mmol/L (3.3-5.1)
[2025-05-12 01:02] LABS: Mucous, Urine 0 SEEN /hpf (<or=2+); Red Blood Cells-Urine 0 SEEN /hpf (0-5); Squamous Epithelial Cells - UA 0 SEEN /hpf (0-5)
[2025-05-12 01:04] LABS: Color, Urine Yellow (Yellow); Glucose, Dipstick Normal (Normal); Ketone-Dipstick Negative (Negative); Leukocyte Esterase-Dipstick Negative /ul (Negative); Nitrite-Dipstick Negative (Negative); Occult Blood-Urine 50 /ul (Negative); Protein-Dipstick 15 mg/dl (Negative); Specific Gravity, Urine 1.010 (1.002-1.030); Urine Bilirubin Dipstick Negative (Negative)
--- NOTE | 2025-05-12 01:08 | CT_ITS ---
PROCEDURE: CTA CHEST W/WO CONTRAST N/A REASON FOR EXAM: ELEVATED D-DIMER TECHNIQUE: CTA CHEST W/WO CONTRAST Multiplanar Sagittal and Coronal images were obtained. One or more dose reduction techniques were used (e.g., Automated exposure control, adjustment of the mA and/or kV according to patient size, use of iterative reconstruction technique). RADIATION DOSE SUMMARY: CTDlvol: 37 mGy DLP: 508 mGycm COMPARISON: No FINDINGS: Unremarkable base of neck and axilla. Normal esophagus. Normal heart size. No aortic dissection. Multiple bilateral pulmonary emboli, there are central, segmental, and subsegmental emboli. Large clot burden. Negative heart strain. No acute chest wall findings. Subcentimeter liver hypodensity favoring cyst. No acute upper abdominal findings. Central airways are patent. Mild bronchial wall thickening. Under aerated lung bases. Posterior left lower lobe airspace disease, more than typical for dependent atelectasis, possible pulmonary infarction or pneumonia. Tiny left effusion. CT/CTA Chest W/WO Contrast IMPRESSION: Multiple bilateral pulmonary emboli, large clot burden. Negative right heart s train. Posterior left lower lobe airspace disease could represent pulmonary infarct. Tiny left-sided effusion. Critical results discussed with Dr. Garcia at 1:52 a.m.. Reading Location: [place] [address]
[2025-05-12 01:10] LABS: Prothrombin Time (Protime)PT. 13.7 SECONDS (11.7-14.9)
[2025-05-12 01:11] LABS: Partial Thromboplast Time 28.1 Seconds (24.1-36.2)
--- NOTE | 2025-05-12 02:09 | PCM.HP.STD ---
HPI - General General Date of Admission: 05/12/25 Date of Service: 05/12/25 Chief Complaint: Back pain HPI Narrative The patient is a 44 y/o M w/ PMHx: HTN, Obesity who presents to the [facility] ED on 05/12/25 with history of onset today bilateral back pain, worse on the left, worse with deep inspiratory effort with no recent illness with noted usage of andogrel x 7 days ~ 1 month ago however he does report he has a second home in [place] and recently over the April weekend did drive straight 12 hours without getting out of the vehicle noting on 22 April that he started to have right calf discomfort however it seemed to slowly sivakumar with now onset of his significant bilateral back discomfort with no specific dyspnea associated but rating the discomfort 8 out of 10 in severity, pleuritic in nature prompting ED evaluation. 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 He does workout regularly and performs [employer]. Workup in the ED included T98.5, heart rate 90, BP 125/91, respiratory rate 18, 98% on room air, CBC with WC 8.0, hemoglobin 13.8, platelet 232 without marked shift, coags unremarkable, D-dimer 2.31, glucose 119 otherwise unremarkable BMP, urinalysis negative, chest x-ray with no acute cardiopulmonary findings CTA chest multiple bilateral pulmonary emboli with a large clot burden with negative right heart strain, posterior left lower lobe airspace disease suspicious for pulmonary infarct with a tiny left-sided pleural effusion, EKG with SR without acute evidence of ischemia with T wave inversion in III. In the ED patient ministered Toradol 30 mg IV x 1, Valium 5 mg p.o. x 1, 1 L normal saline. In the ED patient administered heparin bolus and drip initiated. [facility] Medical History (Updated 05/12/25 @ 02:[address] Harmony Humphries MD) Obesity Lipoma HTN (hypertension) Home Medications ?Medication ?Instructions ?Recorded ?Last Taken ?Type lisinopril 20 mg tablet 20 mg PO DAILY 12/17/18 Unknown History Allergy/AdvReac Type Severity Reaction Status Date / Time No Known Allergies Allergy Verified 05/11/25 23:48 Family History adopted adopted (Patient does not know his biological M/F history.) Surgical History H/O basal cell carcinoma excision Social History (Updated 05/12/25 @ 02:[address] Harmony Humphries MD) household members: spouse Smoking Status: Never smoker alcohol intake: current alcohol intake frequency: a few times a month substance use type: does not use ROS ROS Narrative Admission Review of Systems: CONSTITUTIONAL: No weight loss, fever, chills, + weakness or fatigue. HEENT: Eyes: No visual loss, blurred vision, double vision or yellow sclerae. Ears, Nose, Throat: No hearing loss, sneezing, congestion, runny nose or sore throat. SKIN: No rash or itching, lesions, wounds. CARDIOVASCULAR: + Back pain with deep inspiratory effort. No chest pain, chest pressure or chest discomfort, palpitations, edema, orthopnea, syncopal events. RESPIRATORY: No shortness of breath, cough or sputum, wheezing, hemoptysis. + Pleuritic discomfort, pain with deep inspiratory effort. GASTROINTESTINAL: No anorexia, nausea, vomiting or diarrhea, abdominal pain, melena, BRBPR. GENITOURINARY: No dysuria, frequency, urgency or retention. NEUROLOGICAL: No headache, dizziness, syncope, paralysis, ataxia, numbness or tingling in the extremities, focal weakness, change in bowel or bladder control, seizure. MUSCULOSKELETAL: + muscle, back pain, joint pain or stiffness. HEMATOLOGIC: No anemia, bleeding or bruising. LYMPHATICS: No enlarged nodes. No history of splenectomy. PSYCHIATRIC: No history of depression or anxiety. ENDOCRINOLOGIC: No reports of sweating, cold or heat intolerance. No polyuria or polydipsia. ALLERGIES: No history of asthma, hives, eczema or rhinitis. Vital Signs Vital Signs Vital Signs: 05/11/25 23:46 Temperature 98.5 F Temperature Source Oral Pulse Rate 90 Respiratory Rate 18 Blood Pressure 125/91 H Blood Pressure Mean 102 Pulse Ox 98 Oxygen Delivery Method Room Air Weight Weight: 303 lb 1.6 oz Body Mass Index (BMI) 37.8 Physical Exam Narrative Physical Examination: General: Awake, alert, oriented x 3 and cooperative, seated upright in the ED bed, notes pain approximately 6-8 out of 10 in severity with deep inspiratory effort. Skin: Normal color, normal turgor, no icterus, no cyanosis. HEENT: AT/NC, EOMI, PERRLA, MMM, no carotid bruits or JVD noted. Lungs: CTA bilaterally, moderate effort, mild decrease BL bases, no rales, ronchi or wheezing. Heart: Regular rate and rhythm; no gallop, rub audible. Abdomen: Soft, obese, NTTP, ND, normal BS, no appreciated HSM. Extremities: No cyanosis, clubbing, or edema, currently no discomfort to palpation of either calf but patient then elicited story of travel to [place] at the beginning of April and right calf pain at that time. Neurological: Patient awake, alert, oriented as noted, cognitive function intact; pupils equally reactive to light and accommodation, cranial nerves grossly normal, moving all 4 extremities, no focal deficits, strength preserved. Psychiatric: Affect appears fatigued otherwise normal, no acute evidence of depressive or anxiety feelings. Results Lab / Micro Data 05/12/25 00:35 05/12/25 00:35 Labs: Laboratory Results - last 24 hr 05/12/25 00:35: WBC 8.0, RBC 4.66, Hgb 13.8, Hct 41.8, MCV 89.7, MCH 29.6, MCHC 33.0, RDW Std Deviation 41.5, RDW Coeff of Za 12.7, Plt Count 232, MPV 9.8, Immature Gran % (Auto) 0.500, Neut % (Auto) 63.1, Lymph % (Auto) 20.8, [place] % (Auto) 13.8 H, Eos % (Auto) 1.3, Baso % (Auto) 0.5, Absolute Neuts (auto) 5.1, Absolute Lymphs (auto) 1.66, Nucleated RBC % 0, PT 13.7, INR 1.0, APTT 28.1, D-Dimer Quant (PE/DVT) 2.31 H*, Sodium 135, Potassium 4.2, Chloride 101, Carbon Dioxide 21.4, Anion Gap 13, BUN 15, Creatinine 0.97, Estim Creat Clear Calc 146.80, Est GFR (MDRD) Non-Af 99, BUN/Creatinine Ratio 15.3, Glucose 119 H, Calcium 9.1 05/12/25 00:57: Urine Color Yellow, Urine Clarity Clear, Urine pH 7.0, Ur Specific [place] 1.010, Urine Protein 15 H, Urine Glucose (UA) Normal, Urine Ketones Negative, Urine Occult Blood 50 H, Urine Nitrite Negative, Urine Bilirubin Negative, Urine Urobilinogen Normal, Ur Leukocyte Esterase Negative, Urine RBC 0 SEEN, Urine WBC 0 SEEN, Ur Squamous Epith Cells 0 SEEN, Urine Bacteria 0 SEEN, Urine Mucus 0 SEEN Assessment & Plan Assessment/Plan (1) Bilateral pulmonary embolism: PLAN: Plan The patient is a 44 y/o M w/ PMHx: HTN, Obesity who presents to the [facility] ED on 05/12/25 with history of onset today bilateral back pain, worse on the left, 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 #1. Acute back pain secondary to Acute BL Pulmonary emboli with pulmonary infarct: EKG without acute findings, CXR no acute process, D-dimer elevated, CTPA with multiple bladder pulmonary emboli, with a large clot burden with negative right heart strain, posterior left lower lobe airspace disease possibly suggesting a pulmonary infarct with a tiny left-sided pleural effusion. Unknown family history of hypercoagulable state. Prior to patient history of recent travel there was concern for unclear etiology thus hypercoagulable panel was obtained in the ED prior to heparin drip initiation of bolus patient notes no recent travel. Will admit to PCU, maintain on cardiac telemetry, will obtain cardiac enzyme as well as BNP marker, will continue heparin drip initiated in the ED with bolus. Bilateral lower extremity duplex ultrasound requested. Echocardiogram requested. #2. Hypertension: Continue home regimen including lisinopril, PRN hydralazine. #3. Obesity: Weight loss and lifestyle changes encouraged. #4. DVT prophylaxis: Heparin drip. Charges/Coding Visit Charges Inpatient E&M: 47833 Init Hosp L2
--- NOTE | 2025-05-12 02:17 | EDS_ITS ---
HPI History of Present Illness Chief Complaint: Back Informant: patient and spouse/S.O. Narrative Narrative: Patient is a 44-year-old male who presents with bilateral mid upper back pain. He states that the pain is greatest on the left. He states it been present for roughly 12 to 24 hours. He states he has not had any recent trauma or excessive activity. He denies any history of DVT/PE. He does admit to using testosterone cream for roughly 7 days 1 month ago. He also states that he drives to and from [place] which is 12 hours and did this roughly 4 weeks ago. He states that motion does not seem to make the pain better or worse but that there has been no improvement and he actually feels it is worsening mainly on the left side and secondary to this comes in for evaluation. [facility] Medical History (Updated 05/12/25 @ 03:[address] John Garcia DO) Obesity Lipoma HTN (hypertension) Home Medications ?Medication ?Instructions ?Recorded ?Last Taken ?Type lisinopril 20 mg tablet 20 mg PO DAILY 12/17/18 Unkn own History Allergy/AdvReac Type Severity Reaction Status Date / Time No Known Allergies Allergy Verified 05/11/25 23:48 Surgical History H/O basal cell carcinoma excision Social History (Updated 05/12/25 @ 02:[address] Harmony Humphries MD) household members: spouse Smoking Status: Never smoker alcohol intake: current alcohol intake frequency: a few times a month substance use type: does not use ROS ROS ED Constitutional Constitutional ED: Denies chills or fever(s) Eyes Eyes: Denies blurry vision or change in vision ENT ENT ED: Denies sore throat Cardiovascular Cardiovascular: Denies chest pain, palpitations or racing heartbeat Respiratory/Chest Respiratory/Chest: Denies cough or dyspnea Gastrointestinal Gastrointestinal: Denies abdominal pain, diarrhea, nausea or vomiting Genitourinary Genitourinary ED: Denies dysuria or hematuria Musculoskeletal Musculoskeletal: Reports back pain Integumentary Denies rash Neurologic Neurologic: Denies headache(s) Hematologic/Lymphatic Hematologic/Lymphatic: Denies easy bleeding or easy bruising EXAM Physical Exam Const Vital Signs: 05/11/25 23:46 05/12/25 02:06 Temperature 98.5 F Temperature Source Oral Pulse Rate 90 76 Respiratory Rate 18 18 Blood Pressure 125/91 H 124/78 H Blood Pressure Mean 102 93 Pulse Ox 98 98 Oxygen Delivery Method Room Air Room Air Positive well nourished and well developed General Appearance ED: well developed; Negative for pallor HEENT HEENT Narrative: Normocephalic atraumatic Eyes PERRL and EOMs intact bilaterally General Eye ED: Negative for scleral icterus Neck supple and no JVD Chest Wall palpation of chest normal Resp normal respiratory effort and clear to auscultation bilaterally Resp Narrative: Breath sounds are diminished throughout but overall clear to auscultation without signs of respiratory distress Cardio regular rate and regular rhythm Rate: other Other Details: Heart is regular rate and rhythm without murmurs rubs or gallops Radial and carotid pulses are equal and symmetric Back/Spine Back/Spine Narrative: No bony deformity or step-off of the thoracic or lumbar spine no midline tenderness to palpation. There is mild tension and spasm along the left parathoracic muscle belly However patient reports no worsening of pain with motion such as extension and sidebending and rotation No overlying soft tissue changes to suggest trauma or infection No CVA tenderness Extremity normal to inspection Extremity Narrative: No asymmetric edema no pitting edema negative Homans' sign bilaterally Neuro oriented x3, CN's II-XII intact bilaterally and no sensory deficits noted Sensorium / Orientation: alert Motor Exam: strength 5/5 throughout Psych mental status grossly normal Skin no rashes or lesions noted and no wounds General Skin Exam: Negative for jaundice or pallor MDM MDM MDM Narrative Medical decision making narrative: Patient arrived to the ER hypertensive but has a past medical history of this. He reported bilateral back pain worse on the left without report of trauma or excessive activity. He reports the pain radiates up and not down the leg or into the abdomen. There is concern for UTI/pyelonephritis versus kidney stone versus lung pathology such as pneumonia or pneumothorax. He is low risk for DVT/PE but this is another cause for potential unprovoked pain. Therefore patient had chest x-ray obtained basic labs with urine sample and D-dimer. EKG was obtained and shows no ischemic findings or cardiac dysrhythmia. Chest x-ray revealed no acute lung pathology such as pneumonia or pneumothorax. Urine sample showed no sign of blood going against kidney stone and no sign of infection. Patient's D-dimer was elevated at 2.31 so a CTA was obtained which did show bilateral pulmonary emboli with moderate to large clot burden. There are changes concerning for pulmonary infarct on the left as well which would correlate why his pain is worse on that side. He does not have any signs of heart strain however. At this time as this is a new diagnosis and there is unclear if he has a genetic component as he is adopted and does not know any family history or this is simply related to his recent AndroGel use and travel I do feel the safest option would be admission for further evaluation and heparin. The case was discussed with hospitalist who is agreeable with this and therefore he will be admitted to her service for continued care and evaluation. History & Record Review Discussion w/independent historian: Patient and Significant other Lab Data Attestation: I reviewed the patient's lab results. Labs: Laboratory Results - last 24 hr 05/12/25 05/12/25 00:35 00:57 WBC 8.0 RBC 4.66 Hgb 13.8 Hct 41.8 MCV 89.7 MCH 29.6 MCHC 33.0 RDW Std Deviation 41.5 RDW Coeff of Za 12.7 Plt Count 232 MPV 9.8 Immature Gran % (Auto) 0.500 Neut % (Auto) 63.1 Lymph % (Auto) 20.8 [place] % (Auto) 13.8 H Eos % (Auto) 1.3 Baso % (Auto) 0.5 Absolute Neuts (auto) 5.1 Absolute Lymphs (auto) 1.66 Nucleated RBC % 0 PT 13.7 INR 1.0 APTT 28.1 D-Dimer Quant (PE/DVT) 2.31 H* Sodium 135 Potassium 4.2 Chloride 101 Carbon Dioxide 21.4 Anion Gap 13 BUN 15 Creatinine 0.97 Estim Creat Clear Calc 146.80 Est GFR (MDRD) Non-Af 99 BUN/Creatinine Ratio 15.3 Glucose 119 H Calcium 9.1 Magnesium 2.0 NT pro BNP II < 36 Urine Color Yellow Urine Clarity Clear Urine pH 7.0 Ur Specific [place] 1.010 Urine Protein 15 H Urine Glucose (UA) Normal Urine Ketones Negative Urine Occult Blood 50 H Urine Nitrite Negative Urine Bilirubin Negative Urine Urobilinogen Normal Ur Leukocyte Esterase Negative Urine RBC 0 SEEN Urine WBC 0 SEEN Ur Squamous Epith Cells 0 SEEN Urine Bacteria 0 SEEN Urine Mucus 0 SEEN Urine Opiates Screen NEGATIVE U Buprenorphine Qual NEGATIVE Ur Oxycodone Screen NEGATIVE Urine Methadone Screen NEGATIVE Urine Fentanyl Screen NEGATIVE Ur Barbiturates Screen NEGATIVE Ur Phencyclidine Scrn NEGATIVE Ur Amphetamines Screen NEGATIVE U Benzodiazepines Scrn NEGATIVE Urine Cocaine Screen NEGATIVE U Cannabinoids Screen PRESUMPTIVE POSITIVE Radiography Diagnostic Testing: Clinical Impression(s) from Imaging Studies Chest X-Ray 05/12/25 00:42 IMPRESSION: No acute chest findings. Reading Location: [id number] Chest CTA 05/12/25 01:08 IMPRESSION: Multiple bilateral pulmonary emboli, large clot burden. Negative right heart strain. Posterior left lower lobe airspace disease could represent pulmonary infarct. Tiny left-sided effusion. Critical results discussed with Dr. Garcia at 1:52 a.m.. Reading Location: [id number] Chest x-ray as interpreted by the emergency medicine physician reveals no acute infiltrate pneumothorax or pleural effusion Management Discussion w/another healthcare provider: Hospitalist and Radiologist Discharge Plan Dx/Rx/DC Orders Clinical Impression: Bilateral pulmonary embolism, Pulmonary infarct, Hypertension Disposition Disposition: Acute Care Hospital [facility] Discharge Date/Time: 05/12/25 03:04
[2025-05-12 02:36] LABS: Magnesium 2.0 mg/dL (1.5-2.2); Pro- Brain NATRIURETIC PEPTIDE < 36 pg/mL (<=450)
[2025-05-12] MEDS: Heparin Injection (Vial) 5,000 UNIT/ML VIAL 4000 UNIT IV (02:37)
[2025-05-12 02:46] LABS: Barbiturate Urine NEGATIVE (< 200 ng/mL); Benzodiazepine Urine NEGATIVE (< 200 ng/mL); PCP Urine NEGATIVE (< 25 ng/mL); THC Urine PRESUMPTIVE POSITIVE (< 50 ng/mL)
[2025-05-12] MEDS: HEPARIN/D5w 25,000 UNITS 25,000 UNITS/250 ML IV.SOLN. 13.8 UNITS CONT INF (02:50)
--- OUTSIDE RECORDS SUMMARY | 2025-05-12 02:59 | XMS RPT_ITS | CCD ---
Author Organization [facility] Care Team Providers Care Abrasive Grinder Name Role Phone Dr. Kike Desir DO Primary Care Provider [phone] Dr. Kike Desir DO Attending Provider [phone] Dr. Kike Desir DO Referring Provider Kike [...] [id number] 03-13-2025 PROLACTIN 8.3 ng/mL Normal 3.9-22.7 [facility] Comment on above: Performed By: #### L 3100.5400, L3400.3800, L501.9520, L509.3001 #### [facility] [address] [place], [address] Transferrinon 03-13-2025 Transferrin [Mass/Vol] 267 mg/dL Normal 177-329 [facility] Comment on above: Result Comment: Perf ormed at: CB - [facility] [address] [id number] Cushion Padder: Tee Rodriguez PhD, Phone: [phone] Performed By: #### L 3100.5400, L3400.3800, L501.9520, L509.3001 #### [facility] [address] [place], [place], [id number] L509.3001on 03-11-2025 Testosterone [Mass/Vol] 165.00 ng/dL Low 300-890 [facility] Comment on above: Performed By: #### L 3100.5400, L3400.3800, L501.9520, L509.3001 #### [facility] [address] [place], [address] Laboratory - Chemistry and C hemistry - challengeOrdered By: Kike Desir on 03-11-2025 Testosterone [Mass/Vol] 165.00 ng/dL Low 300-890 [facility] Serum or plasma prolactin me asurement (mass/volume)Ordered By: Kike Desir on 03-11-2025 Prolactin [Mass/Vol] 8.3 ng/mL 3.9-22.7 [facility] TSH DL <= 0.005 mIU/L QnOrde red By: Kike Desir on 03-11-2025 TSH Qn 1.210 uIU/mL 0.300-4.200 [facility] Testosterone, Total / Freeon 03-11-2025 TESTOSTER,FREE 7.18 ng/dL Normal 5.00-21.00 [facility] Comment on above: Order Comment: N UNK Performed By: #### L 500.4100, L500.4050, L100.0100, L3100.5310, L501.9985 #### [facility] [address] [place], [address] TESTOSTER,TOTAL 204 ng/dL Low 264-916 [facility] Comment on above: Order Comment: N UNK Result Comment: Adul t male reference interval is based on a population of healthy nonobese males (BMI <30) between 19 and 39 years old. bud Brody.al. JCEM 2017,102;5407-1975. PMID: [id number]. Performed By: #### L 500.4100, L500.4050, L100.0100, L3100.5310, L501.9985 #### [facility] [address] [place], [place], [id number] TESTOSTERONE,%F 3.52 Normal 1.50-4.20 [facility] Comment on above: Order Comment: N UNK Result Comment: Perf ormed at: [facility] [address] [place], [place] [id number] Cushion Padder: Tee Rodriguez PhD, Phone: [phone] Performed at: [facility] [address] [id number] Cushion Padder: Jaime Moise MD, Phone: [phone] Performed By: #### L 500.4100, L500.4050, L100.0100, L3100.5310, L501.9985 #### [facility] [address] [place], [place], [address] Thyroid Stim Hormone (TSH)on 03-11-2025 TSH 1.210 uIU/mL Normal 0.300-4.200 [facility] Comment on above: Performed By: #### L 3100.5400, L3400.3800, L501.9520, L509.3001 #### [facility] [address] [place], [address] TransferrinOrdered By: Kike Desir on 03-11-2025 Transferrin [Mass/Vol] 267 mg/dL 177-329 [facility] Comment on above: Performed at: [facility] [place], [place] [id number] Director: Tee Rodriguez PhD, Phone: [phone] Absolute lymphocyte countOrd ered By: Kike Desir on 02-24-2025 Lymphocytes Auto (Unsp spec) [#/Vol] 2.27 10*3/uL 0.83-4.51 [facility] Absolute neutrophil countOrd ered By: Kike Desir on 02-24-2025 Neutrophils (Bld) [#/Vol] 3.8 10*3/uL 2.0-7.7 [facility] Anion gap in Serum or Plasma Ordered By: Kike Desir on 02-24-2025 Anion gap [Moles/Vol] 9 mmol/L 5- [facility] Automated lymphocyte count a s percentage of total leukocytesOrdered By: Kike Desir on 02-24-2025 Lymphocytes/100 WBC Auto (Unsp spec) 32.2 % - [facility] BUN/creatinine ratioOrdered By: Kike Desir on 02-24-2025 Urea nitrogen/Creatinine [Mass ratio] 14.8 mg/mg 10- [facility] Basophil percentageOrdered B y: Kike Desir on 02-24-2025 Basophils/100 WBC (Bld) 0.4 % 0-1 [facility] Bilirubin, totalOrdered By: Kike Desir on 02-24-2025 Bilirubin [Mass/Vol] 0.29 mg/dL 0.00-1.30 [facility] CBC W/Diff, Automatedon Absolute Lymph 2.27 X10 3/uL Normal 0.83-4.51 [facility] Comment on above: Performed By: #### L 500.4100, L500.4050, L100.0100, L3100.5310, L501.9985 #### [facility] [address] [place], [address] Absolute Neut 3.8 X10 3/uL Normal 2.0-7.7 [facility] Comment on above: Performed By: #### L 500.4100, L500.4050, L100.0100, L3100.5310, L501.9985 #### [facility] [address] [place], [address] Basophils/100 WBC (Bld) 0.4 % Normal 0-1 [facility] Comment on above: Performed By: #### L 500.4100, L500.4050, L100.0100, L3100.5310, L501.9985 #### [facility] [address] [place], [address] Eosinophils/100 WBC (Bld) 1.7 % Normal 0-5 [facility] Comment on above: Performed By: #### L 500.4100, L500.4050, L100.0100, L3100.5310, L501.9985 #### [facility] [address] [place], [address] Erythrocyte distribution width (RBC) [Ratio] 12.6 % Normal 11.6-14.6 [facility] Comment on above: Performed By: #### L 500.4100, L500.4050, L100.0100, L3100.5310, L501.9985 #### [facility] [address] [place], [address] Hematocrit (Bld) [Volume fraction] 42.3 % Normal 40-54 [facility] Comment on above: Performed By: #### L 500.4100, L500.4050, L100.0100, L3100.5310, L501.9985 #### [facility] [address] [place], [address] Hemoglobin (Bld) [Mass/Vol] 13.9 g/dL Normal 13.0-16.5 [facility] Comment on above: Performed By: #### L 500.4100, L500.4050, L100.0100, L3100.5310, L501.9985 #### [facility] [address] [place], [address] IG% 0.300 Normal 0.0-0.9 [facility] Comment on above: Result Comment: IG% - Immature Granulocytes (promyelocytes, myelocytes and metamyelocytes) > 1% indicates that a LEFT SHIFT is Present. Performed By: #### L 500.4100, L500.4050, L100.0100, L3100.5310, L501.9985 #### [facility] [address] [place], [address] Lymphocytes/100 WBC (Bld) 32.2 % Normal 19-41 [facility] Comment on above: Performed By: #### L 500.4100, L500.4050, L100.0100, L3100.5310, L501.9985 #### [facility] [address] [place], [address] MCH (RBC) [Entitic mass] 29.7 pg Normal 27.0-32.0 [facility] Comment on above: Performed By: #### L 500.4100, L500.4050, L100.0100, L3100.5310, L501.9985 #### [facility] [address] [place], [address] MCHC (RBC) [Mass/Vol] 32.9 g/dL Normal 32-36 [facility] Comment on above: Performed By: #### L 500.4100, L500.4050, L100.0100, L3100.5310, L501.9985 #### [facility] [address] [place], [address] MCV (RBC) [Entitic vol] 90.4 fL Normal 80-94 [facility] Comment on above: Performed By: #### L 500.4100, L500.4050, L100.0100, L3100.5310, L501.9985 #### [facility] [address] [place], [address] Monocytes/100 WBC (Bld) 11.0 % High 0-10 [facility] Comment on above: Performed By: #### L 500.4100, L500.4050, L100.0100, L3100.5310, L501.9985 #### [facility] [address] [place], [address] Neutrophils/100 WBC (Bld) 54.4 % Normal 47-70 [facility] Comment on above: Performed By: #### L 500.4100, L500.4050, L100.0100, L3100.5310, L501.9985 #### [facility] [address] [place], [address] Nucleated RBC (Bld) [#/Vol] 0 10*3/uL Normal 0-5 [facility] Comment on above: Performed By: #### L 500.4100, L500.4050, L100.0100, L3100.5310, L501.9985 #### [facility] [address] [place], [address] Platelet mean volume (Bld) [Entitic vol] 10.6 fL Normal 6.2-12.0 [facility] Comment on above: Performed By: #### L 500.4100, L500.4050, L100.0100, L3100.5310, L501.9985 #### [facility] [address] [place], [address] Platelets (Bld) [#/Vol] 223 10*3/uL Normal 150-450 [facility] Comment on above: Performed By: #### L 500.4100, L500.4050, L100.0100, L3100.5310, L501.9985 #### [facility] [address] [place], [address] RBC (Bld) [#/Vol] 4.68 10*6/uL Normal 4.6-6.2 [facility] Comment on above: Performed By: #### L 500.4100, L500.4050, L100.0100, L3100.5310, L501.9985 #### [facility] [address] [place], [address] RDW SD 41.0 fl Normal 35.1-43.9 [facility] Comment on above: Performed By: #### L 500.4100, L500.4050, L100.0100, L3100.5310, L501.9985 #### [facility] [address] [place], [address] WBC (Bld) [#/Vol] 7.1 10*3/uL Normal 4.4-11.0 [facility] Comment on above: Performed By: #### L 500.4100, L500.4050, L100.0100, L3100.5310, L501.9985 #### [facility] [address] [place], [address] Calculated very low density lipoprotein (VLDL) cholesterol measurementOrdered By: Kike Desir on 02-24-2025 Calculated very low density lipoprotein (VLDL) cholesterol measurement 20 mg/dL 5-40 [facility] Carbon dioxide, total [Moles /volume] in Central venous bloodOrdered By: Kike Desir on 02-24-2025 CO2 [Moles/Vol] 25.4 mmol/L 21.0-32.0 [facility] Chloride assayOrdered By: Dawood Desir on 02-24-2025 Chloride [Moles/Vol] 104 mmol/L 98-108 [facility] Comprehensive Metabolic Prof ilon 02-24-2025 Albumin [Mass/Vol] 4.2 g/dL Normal 3.5-5.0 [facility] Comment on above: Order Comment: UNK Performed By: #### L 500.4100, L500.4050, L100.0100, L3100.5310, L501.9985 #### [facility] [address] [place], [address] Albumin/Globulin [Mass ratio] 1.5 {ratio} Normal 0.9-2.4 [facility] Comment on above: Order Comment: UNK Performed By: #### L 500.4100, L500.4050, L100.0100, L3100.5310, L501.9985 #### [facility] [address] [place], [address] ALK PHOS 60 U/L Normal 40-129 [facility] Comment on above: Order Comment: UNK Performed By: #### L 500.4100, L500.4050, L100.0100, L3100.5310, L501.9985 #### [facility] [address] [place], [address] ALT [Catalytic activity/Vol] 15 U/L Normal <=46 [facility] Comment on above: Order Comment: UNK Performed By: #### L 500.4100, L500.4050, L100.0100, L3100.5310, L501.9985 #### [facility] [address] [place], [address] AST [Catalytic activity/Vol] 17 U/L Normal <=37 [facility] Comment on above: Order Comment: UNK Performed By: #### L 500.4100, L500.4050, L100.0100, L3100.5310, L501.9985 #### [facility] [address] [place], [address] Bilirubin [Mass/Vol] 0.29 mg/dL Normal 0.00-1.30 [facility] Comment on above: Order Comment: UNK Performed By: #### L 500.4100, L500.4050, L100.0100, L3100.5310, L501.9985 #### [facility] [address] [place], [address] BUN/CRE 14.8 RATIO Normal 10-20 [facility] Comment on above: Order Comment: UNK Performed By: #### L 500.4100, L500.4050, L100.0100, L3100.5310, L501.9985 #### [facility] [address] [place], [address] Calcium [Mass/Vol] 9.2 mg/dL Normal 7.6-11.0 [facility] Comment on above: Order Comment: UNK Performed By: #### L 500.4100, L500.4050, L100.0100, L3100.5310, L501.9985 #### [facility] [address] [place], [address] Chloride [Moles/Vol] 104 mmol/L Normal 98-108 [facility] Comment on above: Order Comment: UNK Performed By: #### L 500.4100, L500.4050, L100.0100, L3100.5310, L501.9985 #### [facility] [address] [place], [address] CO2 [Moles/Vol] 25.4 mmol/L Normal 21.0-32.0 [facility] Comment on above: Order Comment: UNK Performed By: #### L 500.4100, L500.4050, L100.0100, L3100.5310, L501.9985 #### [facility] [address] [place], [address] Creatinine [Mass/Vol] 0.98 mg/dL Normal 0.70-1.20 [facility] Comment on above: Order Comment: UNK Performed By: #### L 500.4100, L500.4050, L100.0100, L3100.5310, L501.9985 #### [facility] [address] [place], [address] GAP 9 Normal 5-15 [facility] Comment on above: Order Comment: UNK Performed By: #### L 500.4100, L500.4050, L100.0100, L3100.5310, L501.9985 #### [facility] [address] [place], [address] GFR/1.73 sq M.predicted among non-blacks MDRD (S/P/Bld) [Vol rate/Area] 98 mL/min/{1.73_m2} Normal >60 [facility] Comment on above: Order Comment: UNK Result Comment: mL/m in/1.73m2 CKD-EPI Creatinine Equation (2020) Performed By: #### L 500.4100, L500.4050, L100.0100, L3100.5310, L501.9985 #### [facility] [address] [place], [address] Globulin (S) [Mass/Vol] 2.8 g/dL Normal 2.2-4.2 [facility] Comment on above: Order Comment: UNK Performed By: #### L 500.4100, L500.4050, L100.0100, L3100.5310, L501.9985 #### [facility] [address] [place], [address] Glucose [Mass/Vol] 93 mg/dL Normal 70-99 [facility] Comment on above: Order Comment: UNK Performed By: #### L 500.4100, L500.4050, L100.0100, L3100.5310, L501.9985 #### [facility] [address] [place], [address] Potassium [Moles/Vol] 4.5 mmol/L Normal 3.3-5.1 [facility] Comment on above: Order Comment: UNK Performed By: #### L 500.4100, L500.4050, L100.0100, L3100.5310, L501.9985 #### [facility] [address] [place], [address] Sodium [Moles/Vol] 139 mmol/L Normal 133-145 [facility] Comment on above: Order Comment: UNK Performed By: #### L 500.4100, L500.4050, L100.0100, L3100.5310, L501.9985 #### [facility] [address] [place], [place], [address] T PROT 7.0 g/dL Normal 5.9-8.4 [facility] Comment on above: Order Comment: UNK Performed By: #### L 500.4100, L500.4050, L100.0100, L3100.5310, L501.9985 #### [facility] [address] [place], [address] Urea nitrogen [Mass/Vol] 15 mg/dL Normal 4-19 [facility] Comment on above: Order Comment: UNK Performed By: #### L 500.4100, L500.4050, L100.0100, L3100.5310, L501.9985 #### [facility] [address] [place], [place], [address] Eosinophil percentageOrdered By: Kike Desir on 02-24-2025 Eosinophils/100 WBC (Bld) 1.7 % 0-5 [facility] Erythrocyte distribution wid th ratioOrdered By: Kike Desir on 02-24-2025 Erythrocyte distribution width (RBC) [Ratio] 12.6 % 11.6-14.6 [facility] Erythrocyte distribution wid th standard deviationOrdered By: Kike Desir on 02-24-2025 Erythrocyte distribution width (RBC) [Ratio] 41.0 fl 35.1-43.9 [facility] Free testosterone percentage Ordered By: Kike Desir on 02-24-2025 Testosterone Free/Testosterone.total [Mass fraction] 3.52 % 1.50-4.20 [facility] Comment on above: Performed at: [address] [id number] Director: Tee Rodriguez PhD, Phone: [phone] at: [facility] Lab[address] [id number] Director: Jaime Moise MD, Phone: [phone] Glomerular filtration rate ( GFR) estimation/1.73 sq m using serum, plasma, or whole bOrdered By: Kike Desir on 02-24-2025 GFR/1.73 sq M.predicted among non-blacks MDRD (S/P/Bld) [Vol rate/Area] 98 mL/min/{1.73_m2} >60 [facility] Comment on above: mL/min/1.73m2 CKD-EP I Creatinine Equation (2020) Hematocrit Auto (Bld) [Volum e fraction]Ordered By: Kike Desir on 02-24-2025 Hematocrit (Bld) [Volume fraction] 42.3 % 40-54 [facility] Hemoglobin A1con 02-24-2025 HbA1c (Bld) [Mass fraction] 5.8 % High <=5.6 [facility] Comment on above: Result Comment: Norm al < 5.7 % Prediabetic 5.7 - 6.4 % Diabetic >or= 6.5 % Please note range changes. Performed By: #### L 500.4100, L500.4050, L100.0100, L3100.5310, L501.9985 #### [facility] [address] [place], [place], [id number] Hemoglobin A1c percentageOrd ered By: Kike Desir on 02-24-2025 HbA1c (Bld) [Mass fraction] 5.8 % High <5.7 [facility] Comment on above: Normal < 5.7 % Predi abetic 5.7 - 6.4 % Diabetic >or= 6.5 % Please note range changes. Hemoglobin measurementOrdere d By: Kike Desir on 02-24-2025 Hemoglobin (Bld) [Mass/Vol] 13.9 g/dL 13.0-16.5 [facility] Immature granulocytes/100 WB C Auto (Bld)Ordered By: Kike Desir on 02-24-2025 Immature granulocytes/100 WBC (Bld) 0.300 % 0.0-0.9 [facility] Comment on above: IG% - Immature Granu locytes (promyelocytes, myelocytes and metamyelocytes) > 1% indicates that a LEFT SHIFT is Present. LDL calc ser/plasOrdered By: Kike Desir on 02-24-2025 Cholesterol in LDL [Mass/Vol] 110 mg/dL [facility] Comment on above: Mqtavhepga=022-287 m g/dL & Higher Vufw=052 mg/dL or greater Laboratory - Chemistry and C hemistry - challengeOrdered By: Kike Desir on 02-24-2025 AST [Catalytic activity/Vol] 17 U/L <38 [facility] Lipid Profileon 02-24-2025 CHOL:HDL 3.65 Normal [facility] Comment on above: Performed By: #### L 500.4100, L500.4050, L100.0100, L3100.5310, L501.9985 #### [facility] [address] [place], [address] Cholesterol [Mass/Vol] 180 mg/dL Normal <=200 [facility] Comment on above: Result Comment: Chol esterol level, Desirable <200 mg/dL Borderline high cholesterol 200-239 mg/dL High cholesterol >=240 mg/dL Recommendations of the NCEP Adult Treatment Panel for the following risk-cutoff thresholds for the [place] population. Performed By: #### L 500.4100, L500.4050, L100.0100, L3100.5310, L501.9985 #### [facility] [address] [place], [address] Cholesterol in HDL [Mass/Vol] 49 mg/dL Normal [facility] Comment on above: Result Comment: [place] Cholesterol Education Program (NCEP) guidelines: <40 mg/dL: Low HDL-cholesterol (major risk factor for CHD) >= 60 mg/dL: High HDL-cholesterol (negative risk factor for CHD) HDL-cholesterol is affected by a number of factors, e.g. smoking, exercise, hormones, sex and age. Performed By: #### L 500.4100, L500.4050, L100.0100, L3100.5310, L501.9985 #### [facility] [address] [place], [address] Cholesterol in LDL [Mass/Vol] 110 mg/dL Normal [facility] Comment on above: Result Comment: Bord bkvayf=135-289 mg/dL Higher Sjev=678 mg/dL or greater Performed By: #### L 500.4100, L500.4050, L100.0100, L3100.5310, L501.9985 #### [facility] [address] [place], [address] Cholesterol in VLDL [Mass/Vol] 20 mg/dL Normal 5-40 [facility] Comment on above: Performed By: #### L 500.4100, L500.4050, L100.0100, L3100.5310, L501.9985 #### [facility] [address] [place], [address] Triglyceride [Mass/Vol] 102 mg/dL Normal [facility] Comment on above: Result Comment: The drugs N-Acetylcysteine and Metamizole may falsely depress this assay. Normal range: <150 mg/dL Borderline High: 150-199 mg/dL High: 200-499 mg/dL Very High: >500 mg/dL Performed By: #### L 500.4100, L500.4050, L100.0100, L3100.5310, L501.9985 #### [facility] [address] [place], [address] MCV (mean corpuscular volume ) determinationOrdered By: Kike Desir on 02-24-2025 MCV (RBC) [Entitic vol] 90.4 fL 80-94 [facility] Mean corpuscular hemoglobin (MCH) determinationOrdered By: Kike Desir on 02-24-2025 MCH (RBC) [Entitic mass] 29.7 pg 27.0-32.0 [facility] Mean corpuscular hemoglobin concentration (MCHC) determinationOrdered By: Kike Desir on 02-24-2025 MCHC (RBC) [Mass/Vol] 32.9 g/dL 32-36 [facility] Mean platelet volume determi nationOrdered By: Kike Desir on 02-24-2025 Platelet mean volume (Bld) [Entitic vol] 10.6 fL 6.2-12.0 [facility] Monocyte percentageOrdered B y: Kike Desir on 02-24-2025 Monocytes/100 WBC (Bld) 11.0 % High 0-10 [facility] Neutrophil percentageOrdered By: Kike Desir on 02-24-2025 Neutrophils/100 WBC (Bld) 54.4 % 47-70 [facility] Nucleated red blood cell per centageOrdered By: Kike Desir on 02-24-2025 Nucleated RBC/100 WBC (Bld) [Ratio] 0 % 0-5 [facility] Platelet countOrdered By: Dawood Desir on 02-24-2025 Platelets (Bld) [#/Vol] 223 10*3/uL 150-450 [facility] Potassium measurement (mass/ volume)Ordered By: Kike Desir on 02-24-2025 Potassium (Unsp spec) [Mass/Vol] 4.5 mmol/L 3.3-5.1 [facility] RBC Auto (Bld) [#/Vol]Ordere d By: Kike Desir on 02-24-2025 RBC (Bld) [#/Vol] 4.68 10*6/uL 4.6-6.2 [facility] Screening total cholesterol/ high density lipoprotein (HDL) cholesterol ratioOrdered By: Kike Desir on 02-24-2025 Cholesterol.total/Cholest brooke in HDL [Mass ratio] 3.65 {ratio} [facility] Serum creatinine measurement (mass/volume)Ordered By: Kike Desir on 02-24-2025 Creatinine [Mass/Vol] 0.98 mg/dL 0.70-1.20 [facility] Serum globulin measurementOr dered By: Kike Desir on 02-24-2025 Globulin (S) [Mass/Vol] 2.8 g/dL 2.2-4.2 [facility] Serum glucose measurement (m ass/volume)Ordered By: Kike Desir on 02-24-2025 Glucose [Mass/Vol] 93 mg/dL 70-99 [facility] Serum or plasma alanine adhikari otransferase (ALT) measurementOrdered By: Kike Desir on 02-24-2025 ALT [Catalytic activity/Vol] 15 U/L <47 [facility] Serum or plasma albumin tita urement (mass/volume)Ordered By: Kike Desir on 02-24-2025 Albumin [Mass/Vol] 4.2 g/dL 3.5-5.0 [facility] Serum or plasma albumin/glob ulin mass ratioOrdered By: Kike Desir on 02-24-2025 Albumin/Globulin [Mass ratio] 1.5 {ratio} 0.9-2.4 [facility] Serum or plasma alkaline lyudmila sphatase measurementOrdered By: Kike Desir on 02-24-2025 ALP [Catalytic activity/Vol] 60 U/L 40-129 [facility] Serum or plasma calcium tita urement (mass/volume)Ordered By: Kike Desir on 02-24-2025 Calcium [Mass/Vol] 9.2 mg/dL 7.6-11.0 [facility] Serum or plasma cholesterol in HDL measurement (mass/volume)Ordered By: Kike Desir on 02-24-2025 Cholesterol in HDL [Mass/Vol] 49 mg/dL >40 [facility] Comment on above: National Cholesterol Education Program (NCEP) guidelines:<40 mg/dL: Low HDL-cholesterol (major risk factor for CHD)>= 60 mg/dL: High HDL-cholesterol (negative risk factor for CHD)HDL-cholesterol is affected by a number of factors, e.g. smoking, exercise, hormones, sex and age. Serum or plasma cholesterol measurement (mass/volume)Ordered By: Kike Desir on 02-24-2025 Cholesterol [Mass/Vol] 180 mg/dL <201 [facility] Comment on above: Cholesterol level, D esirable <200 mg/dLBorderline high cholesterol 200-239 mg/dLHigh cholesterol >=240 mg/dLRecommendations of the NCEP Adult Treatment Panel for the following risk-cutoff thresholds for the [place] population. Serum or plasma free testost erone measurement (mass/volume)Ordered By: Kike Desir on 02-24-2025 Testosterone Free [Mass/Vol] 7.18 ng/dL 5.00-21.00 [facility] Serum or plasma urea nitroge n measurement (mass/volume)Ordered By: Kike Desir on 02-24-2025 Urea nitrogen [Mass/Vol] 15 mg/dL 4-19 [facility] Sodium levelOrdered By: Kike Desir on 02-24-2025 Sodium [Moles/Vol] 139 mmol/L 133-145 [facility] Testosterone, totalOrdered B y: Kike Thang on 02-24-2025 Testosterone [Mass/Vol] 204 ng/dL Low 264-916 [facility] Comment on above: Adult male reference interval is based on a population ofhealthy nonobese males (BMI <30) between 19 and 39 yearsold. bud Brody.al. JCEM 2017,102;[id number]. PMID:[id number]. Total proteinOrdered By: Saige Desir on 02-24-2025 Protein [Mass/Vol] 7.0 g/dL 5.9-8.4 [facility] Triglycerides measurementOrd ered By: Kike Desir on 02-24-2025 Triglyceride [Mass/Vol] 102 mg/dL <199 [facility] Comment on above: The drugs N-Acetylcy steine and Metamizole may falsely depress this assay. Normal range: <150 mg/dLBorderline High: 150-199 mg/dLHigh: 200-499 mg/dLVery High: >500 mg/dL White blood cell (WBC) count Ordered By: Kike Desir on 02-24-2025 WBC (Bld) [#/Vol] 7.1 10*3/uL 4.4-11.0 [facility] Absolute lymphocyte countOrd ered By: Kike Desir on 12-08-2023 Lymphocytes Auto (Unsp spec) [#/Vol] 1.42 10*3/uL 0.83-4.51 [facility] Automated lymphocyte count a s percentage of total leukocytesOrdered By: Kike Desir on 12-08-2023 Lymphocytes/100 WBC Auto (Unsp spec) 28.5 % 19-41 [facility] Basophil percentageOrdered B y: Kike Desir on 12-08-2023 Basophils/100 WBC (Bld) 0.6 % 0-1 [facility] Bilirubin [Mass/Vol] 0.40 mg/dL 0.20-1.00 [facility] Comment on above: For patients on eltr ombopag therapy, use of Dimension [place] TBIL is not recommended. Chloride [Moles/Vol] 110 mmol/L 98-107 [facility] Cholesterol [Mass/Vol] 168 mg/dL <200 [facility] Comment on above: <200 mg/dL Desirable 200-240 mg/dL Borderline >240 mg/dL High Risk Eosinophils/100 WBC (Bld) 1.8 % 0-5 [facility] Glucose [Mass/Vol] 111 mg/dL 74-106 [facility] Comment on above: Fasting Glucose resu lt from 100 to 125 mg/dL suggests IMPAIRED HOMEOSTASIS per A.D.A. criteria. Hemoglobin (Bld) [Mass/Vol] 14.5 g/dL 13.0-16.5 [facility] Monocytes/100 WBC (Bld) 11.2 % 0-10 [facility] Neutrophils (Bld) [#/Vol] 2.9 10*3/uL 2.0-7.7 [facility] Neutrophils/100 WBC (Bld) 57.7 % 47-70 [facility] Potassium [Moles/Vol] 4.3 mmol/L 3.5-5.1 [facility] Protein [Mass/Vol] 6.9 g/dL 6.4-8.2 [facility] Sodium [Moles/Vol] 140 mmol/L 136-145 [facility] Triglyceride [Mass/Vol] 68 mg/dL <199 [facility] Comment on above: The drugs N-Acetylcy steine and Metamizole may falsely depress this assay.Serum Triglycerides Reference Interval Normal <150 mg/dL Borderline high 150 - 199 mg/dL High 200 - 499 mg/dL Very High > or = 500 mg/dL WBC (Bld) [#/Vol] 5.0 10*3/uL 4.4-11.0 [facility] Determination of erythrocyte mean corpuscular volume (MCV)Ordered By: iKke Desir on 12-08-2023 MCV (RBC) [Entitic vol] 91.3 fL 80-94 [facility] Erythrocyte distribution wid th ratioOrdered By: Kike Desir on 12-08-2023 Erythrocyte distribution width (RBC) [Ratio] 12.4 % 11.6-14.6 [facility] Erythrocyte distribution wid th standard deviationOrdered By: Kike Desir on 12-08-2023 Erythrocyte distribution width (RBC) [Entitic vol] 41.1 fL 35.1-43.9 [facility] Hematocrit Auto (Bld) [Volum e fraction]Ordered By: Kike Desir on 12-08-2023 Hematocrit (Bld) [Volume fraction] 44.2 % 40-54 [facility] Immature granulocytes/100 WB C Auto (Bld)Ordered By: Kike Desir on 12-08-2023 Immature granulocytes/100 WBC (Bld) 0.200 % 0.0-0.9 [facility] Comment on above: IG% - Immature Granu locytes (promyelocytes, myelocytes and metamyelocytes) > 1% indicates that a LEFT SHIFT is Present. Laboratory - Chemistry and C hemistry - challengeOrdered By: Kike Desir on 12-08-2023 Albumin/Globulin [Mass ratio] 1.1 {ratio} 0.9-2.4 [facility] ALP [Catalytic activity/Vol] 51 U/L 45-117 [facility] ALT [Catalytic activity/Vol] 24 U/L 16-61 [facility] Cholesterol in HDL [Mass/Vol] 51 mg/dL >40 [facility] Comment on above: The drugs N-Acetylcy steine and Metamizole may falsely depress this assay. Reference Range HDL <40 mg/dL Low HDL Cholesterol HDL >or= 60 mg/dL High HDL Cholesterol Cholesterol in LDL [Mass/Vol] 103 mg/dL 0-130 [facility] CO2 [Moles/Vol] 26.0 mmol/L 21.0-32.0 [facility] Globulin (S) [Mass/Vol] 3.3 g/dL 2.2-4.2 [facility] Urea nitrogen/Creatinine [Mass ratio] 11.0 mg/mg 10-20 [facility] Laboratory - Hematology and Cell countsOrdered By: Kike Desir on 12-08-2023 MCH (RBC) [Entitic mass] 30.0 pg 27.0-32.0 [facility] MCHC (RBC) [Mass/Vol] 32.8 g/dL 32-36 [facility] Nucleated RBC/100 WBC (Bld) [Ratio] 0 % 0-5 [facility] Platelet mean volume (Bld) [Entitic vol] 10.2 fL 6.2-12.0 [facility] Platelets (Bld) [#/Vol] 201 10*3/uL 150-450 [facility] No Panel InformationOrdered By: Kike Desir on 12-08-2023 Estimated GFR (MDRD) Amer 105 mL/min >60 [facility] Comment on above: GFR Calc Estimated GFR (MDRD) Non-Af Amer 87 mL/min >60 [facility] Comment on above: Non- GFR Calc VLDL Cholesterol 14 mg/dL 5-40 [facility] RBC Auto (Bld) [#/Vol]Ordere d By: Kike Desir on 12-08-2023 RBC (Bld) [#/Vol] 4.84 10*6/uL 4.6-6.2 [facility] Serum or plasma calcium tita urement (mass/volume)Ordered By: Kike Desir on 12-08-2023 Calcium [Mass/Vol] 8.8 mg/dL 8.5-10.1 [facility] Serum or plasma creatinine m easurement (mass/volume)Ordered By: Kike Desir on 12-08-2023 Creatinine [Mass/Vol] 1.00 mg/dL 0.70-1.30 [facility] Comment on above: The validity of the calculated GFR & GFRAA in patients over 70 years has not been determined. Clinical correlation is essential. Serum or plasma urea nitroge n measurement (mass/volume)Ordered By: Kike Desir on 12-08-2023 Urea nitrogen [Mass/Vol] 11 mg/dL 7-18 [facility] Thin prep Papanicolaou smear with manual screeningOrdered By: Kike Desir on 12-08-2023 Thin prep Papanicolaou smear with manual screening 3.6 g/dL 3.2-5.0 [facility] Thin prep Papanicolaou smear with manual screening 16 U/L 15-37 [facility] Thin prep Papanicolaou smear with manual screening 4 5-15 [facility] Whole blood hemoglobin A1c/t otal hemoglobin ratio (mass fraction)Ordered By: Kike Desir on 12-08-2023 HbA1c (Bld) [Mass fraction] 5.8 % 3.8-5.6 [facility] Comment on above: Normal < 5.7 % Predi abetic 5.7 - 6.4 % Diabetic >or= 6.5 % Please note range changes. Encounters Encounter Date Encounter Type Care Provider Facility Start: 03-11-2025 End: 03-11-[address] Kike Desir DO Work Phone: [facility] Work Phone: Start: 03-11-2025 End: 03-11-[address] Kike Desir DO -[facility] [place] Work Phone: Start: 03-11-2025 End: 03-11-2025 ambulatory Kike Thang Facility:[facility] Start: 03-01-2025 Encounter for genera l adult medical examination without abnormal findings [facility] [place] Start: 02-24-2025 End: 02-24-[address] Kike Desir DO Work Phone: [facility] Work Phone: Start: 02-24-2025 End: 02-24-[address] Kike Desir DO -Laboratory, [place] Work Phone: Start: 02-24-2025 End: 02-24-2025 ambulatory Kike Thang Facility:[facility] Start: 12-08-2023 End: 12-08-2023 ambulatory [facility] Work Phone: Start: 12-08-2023 End: 12-08-2023 Patient encounter procedure [facility] Work Phone: Start: 12-05-2023 End: 12-05-2023 ambulatory [facility] Work Phone: Start: 12-05-2023 End: 12-05-2023 Patient encounter procedure [facility] Plan of Treatment Date Care Activity Detail Author Serum testosterone measurement [facility] Testosterone Free [M ass/volume] in Serum or Plasma [facility] Testosterone measurement [facility] Payers Date Payer Category Payer Private Health Insurance [id number] 2025 Self-pay [id number] 2011 [id number] Unknown [id number] Unknown [id number] Social History Date Type Detail Facility Start: 12-17-2018 Tobacco smoking stat [facility] Unknown if ever smoked [facility] Start: 1980 Sex Assigned At Male [facility] Start: 12-17-2018 Tobacco smoking stat [facility] Never smoked tobacco (finding) [facility] Evaluation note Note Date & Type Note Facility Evaluation note No assessment information availa ble [facility] Work Phone: Reason for referral (narrative) Note Date & Type Note Facility Reason for referral (narrative) No reason for referral information available [facility] Work Phone: Summary Purpose Family History No [...] section and content) DATE CREATED AUTHOR 03/17/2025 [facility] FOR RECORDS PERTAINING TO PATIENTS WHO [...] BE BASED ON THE PRIMARY CLINICAL RECORDS. [employer] provides no warranty or guarantee of the accuracy or completeness of information in this document.
[2025-05-12 04:03] LABS: Troponin T High Sensitivity < 6 ng/L (<=22)
[2025-05-12 05:06] LABS: Hematocrit 38.3 % (40-54); Hemoglobin 12.7 g/dL (13.0-16.5); Immature Granulocytes Count 0.020 X10^3/uL (0.0-0.0); Mean Corp Hgb Conc 33.2 g/dL (32-36); Mean Corpuscular Volume 90.5 fL (80-94); Mean Platelet Vol. 10.1 fl (6.2-12.0); NRBC Flagged by Analyzer 0 % (0-5); Platelet Count 213 K/mm3 (150-450); RBC Distribution Width CV 12.8 % (11.6-14.6); RBC Distribution Width SD 42.4 fl (35.1-43.9); Red Blood Count 4.23 M/mm3 (4.6-6.2); White Blood Count 7.6 K/mm3 (4.4-11.0)
[2025-05-12 05:22] LABS: Troponin T High Sens 2 HR < 6 ng/L (<=22)
[2025-05-12 05:51] LABS: AST(SGOT) 17 U/L (<=37); Alanine Aminotransfer ALT/SGPT 17 U/L (<=46); Albumin, Serum 3.9 g/dL (3.5-5.0); Alkaline Phosphatase 67 U/L (40-129); Anion Gap 10 (5-15); BUN 14 mg/dL (4-19); BUN/Creat Ratio 14.1 RATIO (10-20); Calcium,Total 8.6 mg/dL (7.6-11.0); Carbon Dioxide 23.8 mmol/L (21.0-32.0); Chloride 102 mmol/L (98-108); Estimated Creatinine Clearance 142.81 ml/min (50-250); Globulin 2.6 g/dL (2.2-4.2); Glucose 128 mg/dL (70-99); Potassium 4.6 mmol/L (3.3-5.1)
[2025-05-12 06:46] LABS: Troponin T High Sens 4 HR < 6 ng/L (<=22)
[2025-05-12 09:34] LABS: Partial Thromboplast Time 52.7 Seconds (24.1-36.2)
[2025-05-12] MEDS: APIXABAN 5 MG TABLET 10 MG PO (09:53)
--- NOTE | 2025-05-12 12:36 | DCINST_ITS ---
Discharge Instructions DC O2, CPAP, BIPAP needs Home O2 Discharge instructions: No Dressing / Incision Discharge Activity: Return to Normal Activity Weight Bearing Status: Full weight bearing Follow Up Care Test Results: Test results from this visit will be discussed in further detail at your follow- up appointment, if applicable. Discharge Plan Admission Admit Date/Time: 05/12/25 02:11 Primary Reason for Your Visit: Acute pulmonary embolism Attending Provider: Kike Molina Primary Care Provider: Kike Desir Consulting Providers: Harmony Humphries Instructions Additional Instructions / Restrictions: Do not take Aleve, aspirin, or ibuprofen while taking Eliquis, Tylenol is safe to use for pain Return to the emergency room if you have severe shortness of breath, it is normal to be slightly short of breath for period of time until your body absorbs your blood clots Discharge Orders/Prescriptions Prescriptions: New Eliquis 5 mg Tablet 10 mg PO BID Qty: 0 0RF Rx Instructions: 10 mg twice a day x 7 days then 5 mg twice a day thereafter Continued lisinopril 20 mg tablet 20 mg PO DAILY Referrals / Follow Up: Kike Desir DO [Primary Care Provider] - Within 2 Weeks Disposition Disposition (needs filled in before D/C Order can be placed): Home, Self Care
--- NOTE | 2025-05-12 12:44 | DS.PCM_ITS ---
Providers Date of Admission: 05/12/25 Date of Discharge: 05/12/25 Primary Care Physician: Dr. Kike Desir DO Reason For Visit: BILATERAL PE Diagnosis Discharge Diagnosis (1) Bilateral pulmonary embolism: Status: Acute Code(s): I26.99 - Other pulmonary embolism without acute cor pulmonale Plan 1. Acute pulmonary embolism #2 essential hypertension Medications at Discharge Home Medications lisinopril 20 mg tablet 20 mg PO DAILY 12/17/18 apixaban 5 mg tablet (Eliquis) 10 mg (2 x 5 mg) PO BID #0 tabs 05/12/25 Hospital Course Operations None Procedures None Summary of Care Provided Minutes Spent on Discharge: 30 Hospital Course: This 44-year-old white male was seen in the emergency room at [facility] with chief complaint of bilateral mid upper back pain. He stated this had been present for roughly 12 to 24 hours. Patient had completed the drive to [place] which was approximately 16 hours roughly 4 weeks prior. Workup in the ER included labs which were remarkable for D-dimer of 2.31. Patient underwent a CTA of the chest which showed a large pulmonary emboli bilaterally without evidence of heart strain. Patient was not hypoxic patient was admitted to PCU, he was monitored on telemetry and started on IV heparin, this examiner did not feel he needed additional studies patient was transitioned to Eliquis. On 05/12/2025, patient was seen and examined: On examination he appeared in good health and spirits. Vital signs as documented. Skin warm and dry and without overt rashes. Neck without JVD, neck was supple, trachea midline, thyroid was normal. Lungs clear bilaterally, normal air movement was noted. Heart exam notable for regular rhythm, normal sounds and absence of murmurs, rubs or gallops. Abdomen unremarkable and without evidence of organomegaly, masses, or abdominal aortic enlargement. Bowel sounds are present, abdomen is not distended. Extremities nonedematous, no cyanosis was noted, no clubbing was noted. Neuro: Cranial nerves II through XII are grossly intact, no focal motor deficits were noted, sensation to light touch and pinprick intact, motor exam 5/5 throughout. Psych: Patient is alert and oriented x3, he does not appear anxious or depressed, he does not appear agitated. Patient appears to be stable for discharge on 05/12/2025 Weight / BMI Weight Weight: 138.255 kg Body Mass Index (BMI) 38.0 ABG / Lab / Microbiology Data 05/12/25 04:48 05/12/25 04:48 Laboratory: Laboratory Results - last 24 hr 05/12/25 00:35: WBC 8.0, RBC 4.66, Hgb 13.8, Hct 41.8, MCV 89.7, MCH 29.6, MCHC 33.0, RDW Std Deviation 41.5, RDW Coeff of Za 12.7, Plt Count 232, MPV 9.8, Immature Gran % (Auto) 0.500, Neut % (Auto) 63.1, Lymph % (Auto) 20.8, Meagher % (Auto) 13.8 H, Eos % (Auto) 1.3, Baso % (Auto) 0.5, Absolute Neuts (auto) 5.1, Absolute Lymphs (auto) 1.66, Nucleated RBC % 0, PT 13.7, INR 1.0, APTT 28.1, D- Dimer Quant (PE/DVT) 2.31 H*, Sodium 135, Potassium 4.2, Chloride 101, Carbon Dioxide 21.4, Anion Gap 13, BUN 15, Creatinine 0.97, Estim Creat Clear Calc 146.80, Est GFR (MDRD) Non-Af 99, BUN/Creatinine Ratio 15.3, Glucose 119 H, Calcium 9.1, Magnesium 2.0, NT pro BNP II < 36 05/12/25 00:57: Urine Color Yellow, Urine Clarity Clear, Urine pH 7.0, Ur Specific [place] 1.010, Urine Protein 15 H, Urine Glucose (UA) Normal, Urine Ketones Negative, Urine Occult Blood 50 H, Urine Nitrite Negative, Urine Bilirubin Negative, Urine Urobilinogen Normal, Ur Leukocyte Esterase Negative, Urine RBC 0 SEEN, Urine WBC 0 SEEN, Ur Squamous Epith Cells 0 SEEN, Urine Bacteria 0 SEEN, Urine Mucus 0 SEEN, Urine Opiates Screen NEGATIVE, U Buprenorphine Qual NEGATIVE, Ur Oxycodone Screen NEGATIVE, Urine Methadone Screen NEGATIVE, Urine Fentanyl Screen NEGATIVE, Ur Barbiturates Screen NEGATIVE, Ur Phencyclidine Scrn NEGATIVE, Ur Amphetamines Screen NEGATIVE, U Benzodiazepines Scrn NEGATIVE, Urine Cocaine Screen NEGATIVE, U Cannabinoids Screen PRESUMPTIVE POSITIVE 05/12/25 02:27: Troponin T High Sens < 6 05/12/25 04:48: WBC 7.6, RBC 4.23 L, Hgb 12.7 L, Hct 38.3 L, MCV 90.5, MCH 30.0, MCHC 33.2, RDW Std Deviation 42.4, RDW Coeff of Za 12.8, Plt Count 213, MPV 10.1, Immature Gran % (Auto) 0.300, Neut % (Auto) 61.1, Lymph % (Auto) 25.2, M pio % (Auto) 11.9 H, Eos % (Auto) 1.2, Baso % (Auto) 0.3, Absolute Neuts (auto) 4.7, Absolute Lymphs (auto) 1.91, Nucleated RBC % 0, Sodium 135, Potassium 4.6, Chloride 102, Carbon Dioxide 23.8, Anion Gap 10, BUN 14, Creatinine 1.00, Estim Creat Clear Calc 142.81, Est GFR (MDRD) Non-Af 96, BUN/Creatinine Ratio 14.1, G lucose 128 H, Calcium 8.6, Total Bilirubin 0.49, AST 17, ALT 17, Alkaline Phosphatase 67, Troponin T Hi Sens 2 Hr < 6, Total Protein 6.5, Albumin 3.9, Globulin 2.6, Albumin/Globulin Ratio 1.5 05/12/25 06:10: Troponin T Hi Sens 4Hr < 6 05/12/25 09:00: APTT 52.7 H Radiography Diagnostic Testing: Radiology Impression Chest X-Ray 05/12/25 00:42 IMPRESSION: No acute chest findings. Reading Location: [place] [address] Chest CTA 05/12/25 01:08 IMPRESSION: Multiple bilateral pulmonary emboli, large clot burden. Negative right heart strain. Posterior left lower lobe airspace disease could represent pulmonary infarct. Tiny left-sided effusion. Critical results discussed with Dr. Garcia at 1:52 a.m.. Reading Location: [place] [address] D/C Instructions Weight Bearing Status: Full weight bearing DC O2, CPAP, BIPAP Needs Home O2 Discharge instructions: No Meaningful Use Info Meaningful Use Meaningful Use Diagnoses (Choose all that apply): VTE VTE Anticoag overlap given w/in hospital stay or rx'd at dc?: Yes Pt receive overlap for 5 days?: No Reason overlap not ordered, prescribed, or given for 5 days: Treatment Not Indicated Discharge Plan Admission Admit Date/Time: 05/12/25 02:11 Primary Reason for Your Visit: Acute pulmonary embolism Attending Provider: Kike Molina Primary Care Provider: Kike Desir Consulting Providers: Harmony Humphries Instructions Additional Instructions / Restrictions: Do not take Aleve, aspirin, or ibuprofen while taking Eliquis, Tylenol is safe to use for pain Return to the emergency room if you have severe shortness of breath, it is normal to be slightly short of breath for period of time until your body absorbs your blood clots Discharge Orders/Prescriptions Prescriptions: New Eliquis 5 mg Tablet 10 mg PO BID Qty: 0 0RF Rx Instructions: 10 mg twice a day x 7 days then 5 mg twice a day thereafter Continued lisinopril 20 mg tablet 20 mg PO DAILY Referrals / Follow Up: Kike Desir DO [Primary Care Provider] - Within 2 Weeks Disposition Disposition (needs filled in before D/C Order can be placed): Home, Self Care Charges/Coding Visit Charges Inpatient E&M: 29960 Disch Hosp
[2025-05-19 13:08] LABS: Anti-Cardiolipin Ab, IgG, Qn < 9 GPL U/mL (0-14); Anti-Cardiolipin Ab, IgM, Qn < 9 MPL U/mL (0-12); Anti-Thrombin 3 AG, Immunol 76 % (72-124); Antithrombin 3 Function 94 % (75-135); Beta-2-Glycoprotein I IgA <9 (0-25); Beta-2-Glycoprotein I IgG <9 (0-20); Beta-2-Glycoprotein I IgM <9 (0-32); Protein C, Functional 90 % (73-180)
== END 2025-05-12 14:03 | disposition home or self-care (01) ==
LOC: ED 05-12 02:18 → PCU 05-12 02:56
PROVIDERS: Admitting Provider Family Medicine; Emergency Provider Emergency Medicine; PCP Family Medicine; Visit Provider Internal Medicine
DX: I26.99 Other pulmonary embolism without acute cor pulmonale (principal); E66.9 Obesity, unspecified; I10 Essential (primary) hypertension; Z79.899 Other long term (current) drug therapy; Z68.37 Body mass index [BMI] 37.0-37.9, adult
CPT/HCPCS: 36415; 71046; 71275; 80048; 80053; 80307; 81001; 81240; 81241; 83735; 83880; 84484; 85025; 85300; 85301; 85302; 85303; 85379; 85610; 85730; 86146; 86147; 93005; 96361; 96365; 96366; 96375; 96376; 99221; 99283; Q9967; A4216; G0378

== ENCOUNTER → 2025-06-13 | Outpatient (CLI) | payer OTHER, SELFPAY ==
[2025-06-13 18:03] LABS: Hematocrit 42.1 % (40-54); Hemoglobin 13.8 g/dL (13.0-16.5); Immature Granulocytes Count 0.020 X10^3/uL (0.0-0.0); Mean Corp Hgb Conc 32.8 g/dL (32-36); Mean Corpuscular Volume 90.5 fL (80-94); Mean Platelet Vol. 10.7 fl (6.2-12.0); NRBC Flagged by Analyzer 0 % (0-5); Platelet Count 208 K/mm3 (150-450); RBC Distribution Width CV 12.7 % (11.6-14.6); RBC Distribution Width SD 41.2 fl (35.1-43.9); Red Blood Count 4.65 M/mm3 (4.6-6.2); White Blood Count 7.2 K/mm3 (4.4-11.0)
== END | disposition home or self-care (01) ==
LOC: MTLAB 16:19
PROVIDERS: PCP Family Medicine; Referring Provider Family Medicine; Visit Provider Family Medicine
DX: Z51.81 Encounter for therapeutic drug level monitoring (principal)
CPT/HCPCS: 36415; 85025

== ENCOUNTER → 2025-09-22 | Outpatient (CLI) | payer OTHER, SELFPAY ==
[2025-09-22 10:03] LABS: Hematocrit 44.5 % (40-54); Hemoglobin 14.4 g/dL (13.0-16.5); Immature Granulocytes Count 0.020 X10^3/uL (0.0-0.0); Mean Corp Hgb Conc 32.4 g/dL (32-36); Mean Corpuscular Volume 90.3 fL (80-94); Mean Platelet Vol. 10.3 fl (6.2-12.0); NRBC Flagged by Analyzer 0 % (0-5); Platelet Count 233 K/mm3 (150-450); RBC Distribution Width CV 13.1 % (11.6-14.6); RBC Distribution Width SD 42.7 fl (35.1-43.9); Red Blood Count 4.93 M/mm3 (4.6-6.2); White Blood Count 6.0 K/mm3 (4.4-11.0)
[2025-09-22 10:22] LABS: D-Dimer Quantitative (DVT/PE) 0.27 FEU/ug/m (0.27-0.49)
[2025-09-22 10:38] LABS: AST(SGOT) 19 U/L (<=37); Alanine Aminotransfer ALT/SGPT 17 U/L (<=46); Albumin, Serum 4.2 g/dL (3.5-5.0); Alkaline Phosphatase 58 U/L (40-129); Anion Gap 11 (5-15); BUN 14 mg/dL (4-19); BUN/Creat Ratio 13.5 RATIO (10-20); Calcium,Total 9.2 mg/dL (7.6-11.0); Carbon Dioxide 23.7 mmol/L (21.0-32.0); Chloride 103 mmol/L (98-108); Cholesterol 198 mg/dL (<=200); Globulin 2.8 g/dL (2.2-4.2); Glucose 102 mg/dL (70-99); Low Density Lipoprotein Calc. 127 mg/dL; Magnesium 2.1 mg/dL (1.5-2.2); Potassium 4.4 mmol/L (3.3-5.1); Triglycerides 100 mg/dL; Very Low Density Lipoprotein 20 mg/dL (5-40); Vitamin B12 333 pg/mL (180-914); Vitamin D,25 Hydroxy 14.2 ng/mL (30-100); cholesterol:hdl ratio screen 3.74
[2025-09-26 13:08] LABS: Testosterone, % Free 2.59 % (1.50-4.20); Testosterone, Free 8.26 ng/dL (5.00-21.00)
== END | disposition home or self-care (01) ==
PROVIDERS: PCP Family Medicine; Referring Provider Family Medicine; Visit Provider Family Medicine
DX: Z00.00 Encounter for general adult medical examination without abnormal findings (principal); I26.99 Other pulmonary embolism without acute cor pulmonale; E56.9 Vitamin deficiency, unspecified; E34.9 Endocrine disorder, unspecified; E61.8 Deficiency of other specified nutrient elements
CPT/HCPCS: 36415; 80053; 80061; 82306; 82607; 83036; 83735; 84402; 84403; 84443; 85025; 85379